=== PATIENT | male | born 1960 | race Caucasian/White ===

== ENCOUNTER 2017-02-01 23:58 | Inpatient (IN) | payer OTHER ==
[~2017-02-01] VITALS: Ht 165.1 cm; Wt 93.3 kg
[~2017-02-01 23:58] MED LIST: AMLO-511 PO; ASPI81TA2 PO; CLOP75 PO; LISI-662 PO; METO50TA9 PO; SIMV-260 PO
[2017-02-02 00:35] LABS: BASOPHILS # (AUTO) 0.04 K/uL (0.00-0.20); BASOPHILS % (AUTO) 0.6 % (0.0-2.0); EOSINOPHILS # (AUTO) 0.11 K/uL (0.00-0.70); EOSINOPHILS % (AUTO) 1.76 % (1.0-6.0); HEMOGLOBIN 14.8 g/dL (13.5-17.5); LYMPHOCYTES # (AUTO) 1.2 K/uL (1.0-4.8); MEAN CORPUSCULAR HEMOGLOBIN 31.3 pg (26.0-34.0); MEAN CORPUSCULAR HGB CONC 32.9 G/dL (31.0-37.0); MEAN CORPUSCULAR VOLUME 95 fL (80-100); MONOCYTES # (AUTO) 0.5 K/uL (0.1-1.0); MONOCYTES % (AUTO) 7.3 % (2.0-9.0); NEUTROPHILS # (AUTO) 4.6 K/uL (1.8-7.7); NEUTROPHILS % (AUTO) 71.3 % (40.0-70.0); PLATELET COUNT (AUTO) 194 K/uL (150-450); RED BLOOD CELL COUNT(AUTO) 4.74 MIL/uL (4.50-5.90); RED CELL DISTRIBUTION WIDTH 13.3 % (11.5-14.5); WHITE BLOOD COUNT (AUTO) 6.4 K/uL (4.5-11.0)
[2017-02-02 00:46] LABS: ANION GAP 9 mmol/L (8-16); CALCIUM, TOTAL 8.4 mg/dL (8.8-10.5); CARBON DIOXIDE 27 mmol/L (22-29); CHLORIDE 106 mmol/L (98-107); CREATININE 1.06 mg/dL (0.60-1.30); GLOMERULAR FILTR. RATE CALC > 60 mL/min (>60); POTASSIUM 3.3 mmol/L (3.5-5.1); SODIUM SERUM 142 mmol/L (136-145); UREA NITROGEN, BLOOD 12 mg/dL (7-18)
[2017-02-02 00:52] LABS: ALANINE AMINOTRANSFERASE 25 U/L (12-78); ALBUMIN 3.4 g/dL (3.4-5.0); ASPARTATE AMINOTRANSFERASE 14 U/L (15-37); BILIRUBIN,TOTAL 0.2 mg/dL (0.1-1.0); TOTAL PROTEIN, SERUM 7.1 g/dL (6.4-8.2)
[2017-02-02] MEDS ORDERED: NITROGLYCERIN 2% (1 GM=INCH) PACKET TP ONE (01:15)
[2017-02-02] MEDS ORDERED: MORPHINE SULFATE 4 MG/ML SYRINGE IVP ONE (01:15)
[2017-02-02] MEDS ORDERED: ASPIRIN 81 MG CHEWABLE TABLET PO ONE (01:15)
[2017-02-02] MEDS ORDERED: POTASSIUM CHLORIDE 20 MEQ ER TABLET PO ONE (01:30)
[2017-02-02] MEDS ORDERED: ACETAMINOPHEN 325 MG TABLET PO PRN ×2 (02:15→16:45)
[2017-02-02] MEDS ORDERED: 0.9% SODIUM CHLORIDE 10 ML SYRINGE IVP PRN (02:15)
[2017-02-02] MEDS ORDERED: ONDANSETRON HCL 4 MG/2 ML VIAL IVP PRN ×2 (02:15→16:45)
[2017-02-02 03:30] VITALS: BP 129/75
[2017-02-02 07:30] VITALS: BP 123/80
[2017-02-02 09:52] LABS: ALANINE AMINOTRANSFERASE 22 U/L (12-78); ANION GAP 9 mmol/L (8-16); ASPARTATE AMINOTRANSFERASE 13 U/L (15-37); BILIRUBIN,TOTAL 0.2 mg/dL (0.1-1.0); CALCIUM, TOTAL 8.2 mg/dL (8.8-10.5); CARBON DIOXIDE 26 mmol/L (22-29); CHLORIDE 107 mmol/L (98-107); CREATININE 1.08 mg/dL (0.60-1.30); GLOMERULAR FILTR. RATE CALC > 60 mL/min (>60); SODIUM SERUM 142 mmol/L (136-145); TOTAL PROTEIN, SERUM 6.3 g/dL (6.4-8.2); UREA NITROGEN, BLOOD 13 mg/dL (7-18)
[2017-02-02 11:34] VITALS: BP 125/85
[2017-02-02 16:02] VITALS: BP 125/75
[2017-02-02] MEDS ORDERED: ASPIRIN 81 MG CHEWABLE TABLET PO SCH (16:45)
[2017-02-02] MEDS: METOPROLOL SUCCINATE 50 MG ER TABLET PO SCH (16:45)
[2017-02-02] MEDS ORDERED: HYDROCODONE/ACETAMINOPHEN 5-325 MG TABLET PO PRN (16:45)
[2017-02-02] MEDS ORDERED: IPRATROPIUM BROMIDE 0.5 MG/2.5 ML NEB SOLUTION NEB PRN (16:45)
[2017-02-02] MEDS ORDERED: MAGNESIUM HYDROXIDE SUSPENSION 30 ML UDCUP PO PRN (16:45)
[2017-02-02] MEDS ORDERED: ZOLPIDEM TARTRATE 10 MG TABLET PO PRN (16:45)
[2017-02-02] MEDS: NITROGLYCERIN 2% (1 GM=INCH) PACKET TP SCH (17:28)
[2017-02-02] MEDS: LISINOPRIL 20 MG TABLET PO SCH (17:28)
[2017-02-02] MEDS: CLOPIDOGREL BISULFATE 75 MG TABLET PO SCH (17:28)
[2017-02-02] MEDS: AmLODIPine BESYLATE 5 MG TABLET PO SCH (17:28)
[2017-02-02] MEDS: MORPHINE SULFATE 2 MG/ML SYRINGE IVP PRN (19:46)
[2017-02-02] MEDS: SIMVASTATIN 20 MG TABLET PO SCH (19:46)
[2017-02-02] MEDS: DOCUSATE SODIUM 100 MG CAPSULE PO SCH (19:46)
[2017-02-02 19:47] VITALS: BP 137/74
[2017-02-03] VITALS (14 sets, daily range): BP systolic 114–150; BP diastolic 48–86
[2017-02-03] MEDS: NITROGLYCERIN 2% (1 GM=INCH) PACKET TP SCH ×4 (00:22→18:55)
[2017-02-03] MEDS ORDERED: PNEUMOCOCCAL VACCINE POLYVALENT 0.5 ML VIAL [PPSV23] IM ONE (00:30)
[2017-02-03] MEDS ORDERED: -PHARMACY VACCINE NOTE- MISC ONE ×4 (00:30→00:45)
[2017-02-03 07:00] LABS: HEMOGLOBIN A1C 5.7 % (4.5-6.2)
[2017-02-03 07:26] LABS: CHOL/HDL RATIO 6.3 (4.2-7.3)
[2017-02-03] MEDS: CLOPIDOGREL BISULFATE 75 MG TABLET PO SCH (09:00)
[2017-02-03] MEDS: LISINOPRIL 20 MG TABLET PO SCH (09:00)
[2017-02-03] MEDS: AmLODIPine BESYLATE 5 MG TABLET PO SCH (09:00)
[2017-02-03] MEDS: PANTOPRAZOLE SODIUM 40 MG/VIAL IVP SCH (09:00)
[2017-02-03] MEDS: METOPROLOL SUCCINATE 50 MG ER TABLET PO SCH (09:00)
[2017-02-03] MEDS: ASPIRIN 81 MG CHEWABLE TABLET PO SCH (09:00)
[2017-02-03] MEDS: DOCUSATE SODIUM 100 MG CAPSULE PO SCH ×2 (09:00→20:22)
[2017-02-03] MEDS ORDERED: NITROGLYCERIN 50 MG/D5% WATER 0 ML ONE (14:11)
[2017-02-03] MEDS ORDERED: MIDAZOLAM HCL 2 MG/2 ML VIAL ONE (14:11)
[2017-02-03] MEDS ORDERED: FentaNYL CITRATE-PF 100 MCG/2 ML VIAL ONE (14:11)
[2017-02-03] MEDS ORDERED: VERAPAMIL HCL 2.5 MG/ML 2 ML VIAL ONE (14:11)
[2017-02-03] MEDS ORDERED: LIDOCAINE HCL/PF 1% 30 ML VIAL ONE (14:12)
[2017-02-03] MEDS ORDERED: SODIUM BICARBONATE 50 MEQ/50 ML VIAL ONE (14:12)
[2017-02-03] MEDS ORDERED: IOHEXOL 300 MG/ML 150 ML VIAL ONE (14:12)
[2017-02-03] MEDS ORDERED: HEPARIN SODIUM 1000 UNITS/NS 1,000 ML ONE (14:13)
[2017-02-03] MEDS ORDERED: HEPARIN SODIUM,PORCINE 1,000 UNITS/ML 10 ML VIAL ONE (14:13)
[2017-02-03] MEDS ORDERED: SODIUM CHLORIDE 0.9% 500 ML IV ONE (14:20)
[2017-02-03] MEDS ORDERED: MIDAZOLAM HCL 2 MG/2 ML VIAL IVP ONE (14:24)
[2017-02-03] MEDS ORDERED: FentaNYL CITRATE-PF 100 MCG/2 ML VIAL IVP ONE (14:24)
[2017-02-03] MEDS ORDERED: LIDOCAINE 1% 30 ML/SOD BICARB 8.4% 4 ML SQ ONE (14:24)
[2017-02-03] MEDS ORDERED: HEPARIN SODIUM 2,000 UNITS in HEPARIN SODIUM 1000 UNITS/NS 1,000 ML IARTER ONE (14:26)
[2017-02-03] MEDS ORDERED: IOHEXOL 300 MG/ML 150 ML VIAL IARTER ONE (14:28)
[2017-02-03] MEDS: SIMVASTATIN 20 MG TABLET PO SCH (20:22)
[2017-02-03] MEDS: MORPHINE SULFATE 2 MG/ML SYRINGE IVP PRN (20:22)
[2017-02-04] MEDS: NITROGLYCERIN 2% (1 GM=INCH) PACKET TP SCH ×3 (06:00→12:00)
[2017-02-04 06:10] VITALS: BP 134/78
[2017-02-04 07:33] VITALS: BP 128/80
[2017-02-04] MEDS: METOPROLOL SUCCINATE 50 MG ER TABLET PO SCH (09:55)
[2017-02-04] MEDS: LISINOPRIL 20 MG TABLET PO SCH (09:57)
[2017-02-04] MEDS: AmLODIPine BESYLATE 5 MG TABLET PO SCH (09:58)
[2017-02-04] MEDS: CLOPIDOGREL BISULFATE 75 MG TABLET PO SCH (09:58)
[2017-02-04] MEDS: ASPIRIN 81 MG CHEWABLE TABLET PO SCH (09:58)
[2017-02-04] MEDS: DOCUSATE SODIUM 100 MG CAPSULE PO SCH (09:58)
[2017-02-04] MEDS: PANTOPRAZOLE SODIUM 40 MG/VIAL IVP SCH (09:59)
[2017-02-04 11:25] VITALS: BP 135/74
[2017-02-04] MEDS: MORPHINE SULFATE 2 MG/ML SYRINGE IVP PRN (12:15)
[2017-02-04 15:07] VITALS: BP 139/80
== END 2017-02-04 16:17 | disposition home or self-care (01) | DRG 191 ==
LOC: EMS 02-02 → 5S 02-02 02:25
PROVIDERS: ADMIT Hospitalist; ATTEND Hospitalist
PROC: 4A023N7 Measurement of Cardiac Sampling and Pressure, Left Heart, Percutaneous Approach (ICD-10-PCS; principal; 2017-02-03)
PROC: B2151ZZ Fluoroscopy of Left Heart using Low Osmolar Contrast (ICD-10-PCS; 2017-02-03)
PROC: B2111ZZ Fluoroscopy of Multiple Coronary Arteries using Low Osmolar Contrast (ICD-10-PCS; 2017-02-03)
PROC: B41F1ZZ Fluoroscopy of Right Lower Extremity Arteries using Low Osmolar Contrast (ICD-10-PCS; 2017-02-03)
DX: T82.855A Stenosis of coronary artery stent, initial encounter (principal); I10 Essential (primary) hypertension; I25.10 Atherosclerotic heart disease of native coronary artery without angina pectoris; K21.9 Gastro-esophageal reflux disease without esophagitis; Z53.29 Procedure and treatment not carried out because of patient's decision for other reasons; F17.210 Nicotine dependence, cigarettes, uncomplicated; R07.89 Other chest pain; E78.5 Hyperlipidemia, unspecified; I25.2 Old myocardial infarction; Z79.82 Long term (current) use of aspirin; Z71.6 Tobacco abuse counseling; E78.00 Pure hypercholesterolemia, unspecified; Z79.02 Long term (current) use of antithrombotics/antiplatelets; Z79.899 Other long term (current) drug therapy; Y83.8 Other surgical procedures as the cause of abnormal reaction of the patient, or of later complication, without mention of misadventure at the time of the procedure; Y92.89 Other specified places as the place of occurrence of the external cause; Y93.89 Activity, other specified; Y99.8 Other external cause status
CPT/HCPCS: 83036; 93005; 93306; 96374; 99285; C9113; J1644; J2250; J2270; J3010; J3490; Q9967

== ENCOUNTER 2017-12-21 16:41 | Inpatient (IN) | payer OTHER ==
[~2017-12-21] VITALS: Ht 165.1 cm; Wt 89.0 kg
[~2017-12-21 16:41] MED LIST changes: -ASPI81TA2 PO; +ASPI81TA39 PO
[2017-12-21 17:07] LABS: EOSINOPHILS % (AUTO) 3.5 % (1.0-6.0); HEMATOCRIT 43.6 % (41-53); HEMOGLOBIN 15.4 g/dL (13.5-17.5); LYMPHOCYTES % (AUTO) 33.6 % (22.0-44.0); MEAN CORPUSCULAR HEMOGLOBIN 32.2 pg (26.0-34.0); MEAN CORPUSCULAR HGB CONC 35.4 G/dL (31.0-37.0); MEAN CORPUSCULAR VOLUME 91 fL (80-100); MONOCYTES # (AUTO) 0.4 K/uL (0.1-1.0); MONOCYTES % (AUTO) 6.8 % (2.0-9.0); NEUTROPHILS # (AUTO) 3.3 K/uL (1.8-7.7); NEUTROPHILS % (AUTO) 55.1 % (40.0-70.0); PLATELET COUNT (AUTO) 202 K/uL (150-450); RED BLOOD CELL COUNT(AUTO) 4.79 MIL/uL (4.50-5.90); RED CELL DISTRIBUTION WIDTH 13.2 % (11.5-14.5)
[2017-12-21 17:16] LABS: ANION GAP 8 mmol/L (8-16); CARBON DIOXIDE 29 mmol/L (22-29); CHLORIDE 103 mmol/L (98-107); CREATININE 1.06 mg/dL (0.60-1.30); GLOMERULAR FILTR. RATE CALC > 60 mL/min (>60); GLUCOSE,RANDOM 108 mg/dL (70-110); POTASSIUM 3.8 mmol/L (3.5-5.1); SODIUM SERUM 140 mmol/L (136-145); UREA NITROGEN, BLOOD 12 mg/dL (7-18)
[2017-12-21 17:22] LABS: ALANINE AMINOTRANSFERASE 23 U/L (12-78); ALBUMIN 3.6 g/dL (3.4-5.0); ALKALINE PHOSPHATASE 70 U/L (46-116); ASPARTATE AMINOTRANSFERASE 14 U/L (15-37); BILIRUBIN,TOTAL 0.3 mg/dL (0.1-1.0); TOTAL PROTEIN, SERUM 7.2 g/dL (6.4-8.2)
[2017-12-21] MEDS ORDERED: ASPIRIN 81 MG CHEWABLE TABLET PO ONE (20:00)
[2017-12-21] MEDS ORDERED: NITROGLYCERIN 2% (1 GM=INCH) PACKET TP ONE (20:00)
[2017-12-21] MEDS ORDERED: ONDANSETRON HCL 4 MG/2 ML VIAL IVP PRN (21:00)
[2017-12-21] MEDS ORDERED: 0.9% SODIUM CHLORIDE 10 ML SYRINGE IVP PRN (21:00)
[2017-12-21] MEDS ORDERED: ACETAMINOPHEN 325 MG TABLET PO PRN ×2 (21:00→23:30)
[2017-12-21 21:36] VITALS: BP 130/88
[2017-12-21] MEDS ORDERED: NITROGLYCERIN 0.4 MG SUBLINGUAL TABLET #25 SL PRN (23:30)
[2017-12-21] MEDS ORDERED: METOPROLOL TARTRATE 25 MG TABLET PO SCH (23:30)
[2017-12-22] VITALS (7 sets, daily range): BP systolic 109–145; BP diastolic 22–84
[2017-12-22] MEDS ORDERED: ZOLPIDEM TARTRATE 5 MG TABLET PO PRN
[2017-12-22] MEDS ORDERED: 0.9% SODIUM CHLORIDE 10 ML SYRINGE IVP PRN
[2017-12-22] MEDS ORDERED: ONDANSETRON HCL 4 MG/2 ML VIAL IVP PRN
[2017-12-22] MEDS: HEPARIN SODIUM,PORCINE 5,000 UNITS/ML VIAL SQ SCH ×4 (00:46→23:57)
[2017-12-22 06:49] LABS: BASOPHILS % (AUTO) 0.5 % (0.0-2.0); HEMATOCRIT 40.5 % (41-53); HEMOGLOBIN 14.2 g/dL (13.5-17.5); LYMPHOCYTES # (AUTO) 1.7 K/uL (1.0-4.8); LYMPHOCYTES % (AUTO) 23.8 % (22.0-44.0); MEAN CORPUSCULAR VOLUME 91 fL (80-100); MONOCYTES # (AUTO) 0.5 K/uL (0.1-1.0); MONOCYTES % (AUTO) 6.7 % (2.0-9.0); NEUTROPHILS # (AUTO) 4.7 K/uL (1.8-7.7); PLATELET COUNT (AUTO) 188 K/uL (150-450); RED BLOOD CELL COUNT(AUTO) 4.44 MIL/uL (4.50-5.90); RED CELL DISTRIBUTION WIDTH 13.5 % (11.5-14.5)
[2017-12-22 07:12] LABS: ANION GAP 7 mmol/L (8-16); CARBON DIOXIDE 27 mmol/L (22-29); CHLORIDE 102 mmol/L (98-107); GLUCOSE,RANDOM 91 mg/dL (70-110); POTASSIUM 3.3 mmol/L (3.5-5.1); SODIUM SERUM 136 mmol/L (136-145); UREA NITROGEN, BLOOD 17 mg/dL (7-18)
[2017-12-22 07:13] LABS: C-REACTIVE PROTEIN QUANT 0.32 mg/dL (0.00-0.30); CALCIUM, TOTAL 8.6 mg/dL (8.8-10.5); GLOMERULAR FILTR. RATE CALC > 60 mL/min (>60)
[2017-12-22] MEDS: METOPROLOL SUCCINATE 50 MG ER TABLET PO SCH (08:09)
[2017-12-22] MEDS: PANTOPRAZOLE SODIUM 40 MG/VIAL IVP SCH (08:10)
[2017-12-22] MEDS: CLOPIDOGREL BISULFATE 75 MG TABLET PO SCH (08:10)
[2017-12-22] MEDS: ASPIRIN 81 MG CHEWABLE TABLET PO SCH (08:10)
[2017-12-22] MEDS: NITROGLYCERIN 2% (1 GM=INCH) PACKET TP SCH ×2 (08:11→20:21)
[2017-12-22] MEDS ORDERED: ASPIRIN 81 MG CHEWABLE TABLET PO SCH (09:00)
[2017-12-22] MEDS: LISINOPRIL 20 MG TABLET PO SCH (11:30)
[2017-12-22] MEDS: AmLODIPine BESYLATE 5 MG TABLET PO SCH (11:30)
[2017-12-22] MEDS ORDERED: POTASSIUM CHL 10 MEQ/WATER 50 ML IV PRN (12:00)
[2017-12-22] MEDS ORDERED: POTASSIUM CHLORIDE 20 MEQ ER TABLET PO PRN (12:00)
[2017-12-22] MEDS ORDERED: SIMVASTATIN 20 MG TABLET PO SCH (21:00)
[2017-12-23] VITALS (14 sets, daily range): BP systolic 126–159; BP diastolic 66–94
[2017-12-23] MEDS: AmLODIPine BESYLATE 5 MG TABLET PO SCH (08:02)
[2017-12-23] MEDS: METOPROLOL SUCCINATE 50 MG ER TABLET PO SCH (08:02)
[2017-12-23] MEDS: CLOPIDOGREL BISULFATE 75 MG TABLET PO SCH (08:02)
[2017-12-23] MEDS: ASPIRIN 81 MG CHEWABLE TABLET PO SCH (08:02)
[2017-12-23] MEDS: LISINOPRIL 20 MG TABLET PO SCH (08:02)
[2017-12-23] MEDS: HEPARIN SODIUM,PORCINE 5,000 UNITS/ML VIAL SQ SCH ×2 (08:03→15:17)
[2017-12-23] MEDS: PANTOPRAZOLE SODIUM 40 MG/VIAL IVP SCH (08:03)
[2017-12-23] MEDS: NITROGLYCERIN 2% (1 GM=INCH) PACKET TP SCH ×3 (08:05→20:53)
[2017-12-23] MEDS ORDERED: SODIUM BICARBONATE 50 MEQ/50 ML VIAL ONE (08:35)
[2017-12-23] MEDS ORDERED: HEPARIN SODIUM 1000 UNITS/NS 1,000 ML ONE (08:35)
[2017-12-23] MEDS ORDERED: LIDOCAINE HCL/PF 1% 30 ML VIAL ONE (08:35)
[2017-12-23] MEDS ORDERED: IOHEXOL 300 MG/ML 150 ML VIAL ONE (08:35)
[2017-12-23 08:53] LABS: PROTHROMBIN TIME 10.1 SEC (9.4-11.6)
[2017-12-23] MEDS ORDERED: FentaNYL CITRATE-PF 100 MCG/2 ML VIAL ONE (08:56)
[2017-12-23] MEDS ORDERED: VERAPAMIL HCL 2.5 MG/ML 2 ML VIAL ONE (08:56)
[2017-12-23] MEDS ORDERED: MIDAZOLAM HCL 2 MG/2 ML VIAL ONE (08:56)
[2017-12-23] MEDS ORDERED: NITROGLYCERIN 50 MG/D5% WATER 250 ML ONE (08:57)
[2017-12-23] MEDS ORDERED: HEPARIN SODIUM,PORCINE 1,000 UNITS/ML 10 ML VIAL ONE (08:57)
[2017-12-23] MEDS ORDERED: SODIUM CHLORIDE 0.9% 500 ML IV ONE (09:36)
[2017-12-23] MEDS ORDERED: LIDOCAINE 1% 30 ML/SOD BICARB 8.4% 4 ML SQ ONE (09:37)
[2017-12-23] MEDS ORDERED: FentaNYL CITRATE-PF 100 MCG/2 ML VIAL IVP ONE (09:39)
[2017-12-23] MEDS ORDERED: MIDAZOLAM HCL 2 MG/2 ML VIAL IVP ONE (09:39)
[2017-12-23] MEDS ORDERED: HEPARIN SODIUM 2,000 UNITS in HEPARIN SODIUM 1000 UNITS/NS 1,000 ML IARTER ONE (09:40)
[2017-12-23] MEDS ORDERED: IOHEXOL 300 MG/ML 150 ML VIAL IARTER ONE (09:41)
[2017-12-23] MEDS ORDERED: HEPARIN SODIUM,PORCINE 5,000 UNITS/ML VIAL IVP ONE (09:52)
[2017-12-23] MEDS ORDERED: CLOPIDOGREL BISULFATE 300 MG TABLET ONE (09:58)
[2017-12-23] MEDS ORDERED: IOHEXOL 300 MG/ML 50 ML VIAL ONE (09:58)
[2017-12-23] MEDS ORDERED: IOHEXOL 300 MG/ML 100 ML VIAL ONE (09:58)
[2017-12-23] MEDS ORDERED: CLOPIDOGREL BISULFATE 300 MG TABLET PO ONE (10:00)
[2017-12-23] MEDS ORDERED: VERAPAMIL HCL 2.5 MG/ML 2 ML VIAL ICOR ONE ×2 (10:13)
[2017-12-23] MEDS ORDERED: NITROGLYCERIN/D5W 50 MG/250 ML IV BOTTLE ICOR ONE ×2 (10:13)
[2017-12-23] MEDS ORDERED: TraMADol HCL 50 MG TABLET PO PRN (14:45)
[2017-12-23] MEDS ORDERED: ATORVASTATIN CALCIUM 40 MG TABLET PO SCH (21:00)
[2017-12-24] VITALS: BP 135/65
[2017-12-24 04:00] VITALS: BP 137/41
[2017-12-24 08:00] VITALS: BP 132/85
[2017-12-24] MEDS: HEPARIN SODIUM,PORCINE 5,000 UNITS/ML VIAL SQ SCH ×2 (08:00)
[2017-12-24] MEDS: AmLODIPine BESYLATE 5 MG TABLET PO SCH (08:02)
[2017-12-24] MEDS: LISINOPRIL 20 MG TABLET PO SCH (08:02)
[2017-12-24] MEDS: CLOPIDOGREL BISULFATE 75 MG TABLET PO SCH (08:02)
[2017-12-24] MEDS: METOPROLOL SUCCINATE 50 MG ER TABLET PO SCH (08:02)
[2017-12-24] MEDS: ASPIRIN 81 MG CHEWABLE TABLET PO SCH (08:02)
[2017-12-24] MEDS: NITROGLYCERIN 2% (1 GM=INCH) PACKET TP SCH (08:03)
[2017-12-24] MEDS: PANTOPRAZOLE SODIUM 40 MG/VIAL IVP SCH (08:03)
[2017-12-24] MEDS ORDERED: ATOR80TA PO (11:42)
== END 2017-12-24 12:15 | disposition home or self-care (01) | DRG 175 ==
LOC: EMS 16:41 → 5S 20:27 → EMS 21:05 → ICU 12-23 11:30
PROVIDERS: ADMIT Internal Medicine; ATTEND Internal Medicine
PROC: 027035Z Dilation of Coronary Artery, One Artery with Two Drug-eluting Intraluminal Devices, Percutaneous Approach (ICD-10-PCS; principal; 2017-12-23)
PROC: 4A023N7 Measurement of Cardiac Sampling and Pressure, Left Heart, Percutaneous Approach (ICD-10-PCS; 2017-12-23)
PROC: B2111ZZ Fluoroscopy of Multiple Coronary Arteries using Low Osmolar Contrast (ICD-10-PCS; 2017-12-23)
PROC: B2151ZZ Fluoroscopy of Left Heart using Low Osmolar Contrast (ICD-10-PCS; 2017-12-23)
DX: T82.855A Stenosis of coronary artery stent, initial encounter (principal); I10 Essential (primary) hypertension; I25.10 Atherosclerotic heart disease of native coronary artery without angina pectoris; E78.5 Hyperlipidemia, unspecified; E78.00 Pure hypercholesterolemia, unspecified; K21.9 Gastro-esophageal reflux disease without esophagitis; F17.210 Nicotine dependence, cigarettes, uncomplicated; I25.2 Old myocardial infarction; Z95.5 Presence of coronary angioplasty implant and graft; Z79.899 Other long term (current) drug therapy; Z79.82 Long term (current) use of aspirin; Z82.49 Family history of ischemic heart disease and other diseases of the circulatory system; Z71.6 Tobacco abuse counseling
CPT/HCPCS: 83735; 84132; 86140; 87081; 92920; 92928; 93005; 93306; 99285; C9113; J1644; J2250; J3010; J3490; Q9967

== ENCOUNTER 2019-02-21 21:06 | Inpatient (IN) | payer OTHER ==
[~2019-02-21] VITALS: Ht 165.1 cm; Wt 88.8 kg
[~2019-02-21 21:06] MED LIST changes: +ATOR80TA PO; -CLOP75 PO; +CLOP75TA3 PO; -SIMV-260 PO
[2019-02-21 21:38] LABS: BASOPHILS % (AUTO) 0.7 % (0.0-2.0); EOSINOPHILS % (AUTO) 4.4 % (1.0-6.0); HEMATOCRIT 40.2 % (41-53); HEMOGLOBIN 13.9 g/dL (13.5-17.5); LYMPHOCYTES # (AUTO) 2.1 K/uL (1.0-4.8); LYMPHOCYTES % (AUTO) 31.8 % (22.0-44.0); MEAN CORPUSCULAR HEMOGLOBIN 31.7 pg (26.0-34.0); MEAN CORPUSCULAR HGB CONC 34.6 G/dL (31.0-37.0); MEAN CORPUSCULAR VOLUME 92 fL (80-100); MONOCYTES # (AUTO) 0.5 K/uL (0.1-1.0); MONOCYTES % (AUTO) 7.3 % (2.0-9.0); NEUTROPHILS # (AUTO) 3.7 K/uL (1.8-7.7); NEUTROPHILS % (AUTO) 55.8 % (40.0-70.0); PLATELET COUNT (AUTO) 198 K/uL (150-450); RED BLOOD CELL COUNT(AUTO) 4.38 MIL/uL (4.50-5.90); RED CELL DISTRIBUTION WIDTH 13.2 % (11.5-14.5)
[2019-02-21 21:44] LABS: GLUCOSE,POINT OF CARE 95 MG/DL (70-110)
[2019-02-21 21:53] LABS: ANION GAP 8 mmol/L (8-16); CALCIUM, TOTAL 8.4 mg/dL (8.8-10.5); CARBON DIOXIDE 26 mmol/L (22-29); CHLORIDE 109 mmol/L (98-107); CREATININE 1.12 mg/dL (0.60-1.30); GLOMERULAR FILTR. RATE CALC > 60 mL/min (>60); GLUCOSE,RANDOM 104 mg/dL (70-110); POTASSIUM 3.8 mmol/L (3.5-5.1); SODIUM SERUM 143 mmol/L (136-145); UREA NITROGEN, BLOOD 15 mg/dL (7-18)
[2019-02-21 21:58] LABS: AMMONIA 24 umol/L (11-32)
[2019-02-21 21:59] LABS: ALANINE AMINOTRANSFERASE 16 U/L (12-78); ALBUMIN 3.2 g/dL (3.4-5.0); ALKALINE PHOSPHATASE 69 U/L (46-116); ASPARTATE AMINOTRANSFERASE 12 U/L (15-37); BILIRUBIN,TOTAL 0.2 mg/dL (0.1-1.0); LIPASE 136 U/L (73-393); TOTAL PROTEIN, SERUM 6.7 g/dL (6.4-8.2)
[2019-02-21 22:01] LABS: TROPONIN I < 0.02 ng/mL (0.00-0.05)
[2019-02-21 22:02] LABS: B-TYPE NATRIURETIC PEPTIDE 39 pg/mL (0-100)
[2019-02-21] MEDS ORDERED: ASPIRIN 325 MG TABLET PO ONE (22:45)
[2019-02-21] MEDS ORDERED: NITROGLYCERIN 2% (1 GM=INCH) PACKET TP ONE (22:45)
[2019-02-21] MEDS ORDERED: CLOPIDOGREL BISULFATE 75 MG TABLET PO ONE (23:00)
[2019-02-21] MEDS ORDERED: 0.9% SODIUM CHLORIDE 10 ML SYRINGE IVP PRN (23:00)
[2019-02-21] MEDS ORDERED: ACETAMINOPHEN 325 MG TABLET PO PRN (23:00)
[2019-02-21] MEDS ORDERED: ONDANSETRON HCL 4 MG/2 ML VIAL IVP PRN (23:00)
[2019-02-21 23:45] VITALS: BP 129/62
[2019-02-21 23:59] LABS: APPEARANCE,URINE CLEAR (CLEAR); BILIRUBIN,URINE NEGATIVE (NEGATIVE); GLUCOSE, URINE (UA) NEGATIVE (NEGATIVE); KETONES,URINE NEGATIVE (NEGATIVE); LEUKOCYTE ESTERASE ,URINE NEGATIVE (NEGATIVE); NITRATE,URINE NEGATIVE (NEGATIVE); OCCULT BLOOD,URINE NEGATIVE (NEGATIVE); PROTEIN,URINE NEGATIVE (NEGATIVE); UROBILINOGEN,URINE 0.2 mg/dL (<=1.0)
[2019-02-22 00:04] LABS: AMPHET/METH SCREEN,URINE NEGATIVE (NEGATIVE); BARBITURATE SCREEN, URINE NEGATIVE (NEGATIVE); BENZODIAZEPINES SCREEN,URINE NEGATIVE (NEGATIVE); CANNABINOID SCREEN,URINE NEGATIVE (NEGATIVE); COCAINE SCREEN,URINE NEGATIVE (NEGATIVE); METHADONE SCREEN, URINE NEGATIVE (NEGATIVE); OPIATE SCREEN,URINE NEGATIVE (NEGATIVE); PHENCYCLIDINE SCREEN,URINE NEGATIVE (NEGATIVE)
[2019-02-22 00:16] LABS: BACTERIA,URINE None Seen /HPF (None Seen); RBC,URINE 0-2 /HPF (0-2); SQUAMOUS EPITHELIAL CELL,UR Rare /LPF (None Seen); WBC,URINE 0-2 /HPF (0-5)
[2019-02-22] MEDS ORDERED: PNEUMOCOCCAL VACCINE POLYVALENT 0.5 ML VIAL [PPSV23] IM ONE (01:15)
[2019-02-22] MEDS ORDERED: -PHARMACY VACCINE NOTE- MISC ONE (01:15)
[2019-02-22] MEDS ORDERED: NITROGLYCERIN 2% (1 GM=INCH) PACKET TP PRN (02:15)
[2019-02-22] MEDS ORDERED: ACETAMINOPHEN 325 MG TABLET PO PRN (02:15)
[2019-02-22] MEDS ORDERED: NITROGLYCERIN 0.4 MG SUBLINGUAL TABLET #25 SL PRN (02:15)
[2019-02-22] MEDS ORDERED: ZOLPIDEM TARTRATE 5 MG TABLET PO PRN (02:15)
[2019-02-22 04:34] VITALS: BP 120/76
[2019-02-22] MEDS ORDERED: GADOBUTROL 1 MMOL/ML 10 ML VIAL IVP ONE (08:14)
[2019-02-22 08:35] VITALS: BP 112/77
[2019-02-22] MEDS ORDERED: ASPIRIN 81 MG CHEWABLE TABLET PO SCH (09:00)
[2019-02-22] MEDS: LISINOPRIL 20 MG TABLET PO SCH (10:37)
[2019-02-22] MEDS: AmLODIPine BESYLATE 5 MG TABLET PO SCH (10:37)
[2019-02-22] MEDS: CLOPIDOGREL BISULFATE 75 MG TABLET PO SCH (10:37)
[2019-02-22] MEDS: METOPROLOL SUCCINATE 50 MG ER TABLET PO SCH (10:37)
[2019-02-22 11:46] VITALS: BP 120/70
[2019-02-22] MEDS ORDERED: TraMADol HCL 50 MG TABLET PO PRN (12:00)
[2019-02-22] MEDS: MORPHINE SULFATE 2 MG/ML SYRINGE IVP PRN (15:41)
[2019-02-22 18:41] LABS: HEMOGLOBIN A1C 5.8 % (4.5-6.2)
[2019-02-22 18:50] LABS: CHOL/HDL RATIO 8.2 (4.2-7.3); THYROID STIMULATING HORMONE 2.01 uIU/mL (0.36-3.74)
[2019-02-22] MEDS: RANOLAZINE 500 MG ER TABLET PO SCH (19:39)
[2019-02-22] MEDS: ATORVASTATIN CALCIUM 40 MG TABLET PO SCH (19:39)
[2019-02-22 20:37] VITALS: BP 127/83
[2019-02-23 05:07] VITALS: BP 139/78
[2019-02-23 06:43] LABS: BASOPHILS % (AUTO) 0.7 % (0.0-2.0); EOSINOPHILS % (AUTO) 4.1 % (1.0-6.0); HEMOGLOBIN 13.4 g/dL (13.5-17.5); LYMPHOCYTES # (AUTO) 1.8 K/uL (1.0-4.8); LYMPHOCYTES % (AUTO) 27.6 % (22.0-44.0); MEAN CORPUSCULAR HEMOGLOBIN 31.9 pg (26.0-34.0); MEAN CORPUSCULAR HGB CONC 34.3 G/dL (31.0-37.0); MEAN CORPUSCULAR VOLUME 93 fL (80-100); MONOCYTES # (AUTO) 0.5 K/uL (0.1-1.0); MONOCYTES % (AUTO) 7.6 % (2.0-9.0); NEUTROPHILS # (AUTO) 3.9 K/uL (1.8-7.7); PLATELET COUNT (AUTO) 181 K/uL (150-450); RED CELL DISTRIBUTION WIDTH 13.3 % (11.5-14.5)
[2019-02-23 06:56] LABS: ALANINE AMINOTRANSFERASE 12 U/L (12-78); ALBUMIN 2.9 g/dL (3.4-5.0); ALKALINE PHOSPHATASE 60 U/L (46-116); ANION GAP 7 mmol/L (8-16); ASPARTATE AMINOTRANSFERASE 6 U/L (15-37); BILIRUBIN,TOTAL 0.2 mg/dL (0.1-1.0); CALCIUM, TOTAL 8.5 mg/dL (8.8-10.5); CARBON DIOXIDE 28 mmol/L (22-29); CHLORIDE 106 mmol/L (98-107); CREATININE 1.12 mg/dL (0.60-1.30); GLOMERULAR FILTR. RATE CALC > 60 mL/min (>60); GLUCOSE,RANDOM 99 mg/dL (70-110); POTASSIUM 3.8 mmol/L (3.5-5.1); SODIUM SERUM 141 mmol/L (136-145); TOTAL PROTEIN, SERUM 6.3 g/dL (6.4-8.2); UREA NITROGEN, BLOOD 19 mg/dL (7-18)
[2019-02-23 08:35] VITALS: BP_SYST 106; BP_SYST 152; BP_DIAS 55; BP_DIAS 81
[2019-02-23] MEDS: RANOLAZINE 500 MG ER TABLET PO SCH ×2 (09:09→20:29)
[2019-02-23] MEDS: LISINOPRIL 20 MG TABLET PO SCH (09:09)
[2019-02-23] MEDS: CLOPIDOGREL BISULFATE 75 MG TABLET PO SCH (09:10)
[2019-02-23] MEDS: ASPIRIN 325 MG TABLET PO SCH (09:10)
[2019-02-23] MEDS: AmLODIPine BESYLATE 5 MG TABLET PO SCH (09:10)
[2019-02-23] MEDS: METOPROLOL SUCCINATE 50 MG ER TABLET PO SCH (09:10)
[2019-02-23 11:58] VITALS: BP 138/88
[2019-02-23 16:48] VITALS: BP 139/77
[2019-02-23 20:11] VITALS: BP 148/81
[2019-02-23] MEDS: ATORVASTATIN CALCIUM 40 MG TABLET PO SCH (20:29)
[2019-02-23] MEDS: MORPHINE SULFATE 2 MG/ML SYRINGE IVP PRN (20:29)
[2019-02-24 00:46] VITALS: BP 152/80
[2019-02-24 05:18] VITALS: BP 119/75
[2019-02-24 07:46] VITALS: BP 153/90
[2019-02-24] MEDS: ASPIRIN 325 MG TABLET PO SCH (08:10)
[2019-02-24] MEDS: AmLODIPine BESYLATE 5 MG TABLET PO SCH (08:11)
[2019-02-24] MEDS: RANOLAZINE 500 MG ER TABLET PO SCH (08:11)
[2019-02-24] MEDS: LISINOPRIL 20 MG TABLET PO SCH (08:11)
[2019-02-24] MEDS: CLOPIDOGREL BISULFATE 75 MG TABLET PO SCH (08:11)
[2019-02-24] MEDS: METOPROLOL SUCCINATE 50 MG ER TABLET PO SCH (08:11)
[2019-02-24 11:13] VITALS: BP 113/59
[2019-02-24] MEDS ORDERED: AMLO-512 PO (11:36)
[2019-02-24] MEDS ORDERED: RANO500T3 PO (11:37)
[2019-02-24] MEDS ORDERED: MAG HYDROX/AL HYDROX/SIMETH 30 ML SUSP UDCUP PO ONE ×2 (15:45→16:00)
[2019-02-24 15:59] VITALS: BP 134/68
== END 2019-02-24 16:10 | disposition home or self-care (01) | DRG 45 ==
LOC: EMS 21:06 → 5S 22:50
PROVIDERS: ADMIT Internal Medicine; ATTEND Internal Medicine
DX: I63.81 Other cerebral infarction due to occlusion or stenosis of small artery (principal); I11.0 Hypertensive heart disease with heart failure; I50.32 Chronic diastolic (congestive) heart failure; I25.10 Atherosclerotic heart disease of native coronary artery without angina pectoris; E78.00 Pure hypercholesterolemia, unspecified; I25.2 Old myocardial infarction; E66.9 Obesity, unspecified; E78.5 Hyperlipidemia, unspecified; F17.210 Nicotine dependence, cigarettes, uncomplicated; I65.23 Occlusion and stenosis of bilateral carotid arteries; J44.9 Chronic obstructive pulmonary disease, unspecified; K21.9 Gastro-esophageal reflux disease without esophagitis; Z86.73 Personal history of transient ischemic attack (TIA), and cerebral infarction without residual deficits; Z91.19 Patient's noncompliance with other medical treatment and regimen; Z95.5 Presence of coronary angioplasty implant and graft; Z28.21 Immunization not carried out because of patient refusal
CPT/HCPCS: 70450; 70544; 70549; 70553; 83036; 83735; 84443; 92523; 93005; 93306; 93880; 97116; 97162; 97166; 97530; 97535; 99291; A9585; G0378; G0480; J2270

== ENCOUNTER 2019-08-29 15:15 | Emergency (ER) | payer OTHER ==
[~2019-08-29] VITALS: Ht 165.1 cm; Wt 88.6 kg
[~2019-08-29 15:15] MED LIST changes: -AMLO-511 PO; +AMLO10TA7 PO; +RANO500T3 PO
[2019-08-29 16:21] LABS: BASOPHILS % (AUTO) 0.8 % (0.0-2.0); EOSINOPHILS % (AUTO) 3.7 % (1.0-6.0); HEMATOCRIT 42.4 % (41-53); HEMOGLOBIN 14.8 g/dL (13.5-17.5); LYMPHOCYTES # (AUTO) 1.7 K/uL (1.0-4.8); LYMPHOCYTES % (AUTO) 29.3 % (22.0-44.0); MEAN CORPUSCULAR HEMOGLOBIN 32.6 pg (26.0-34.0); MEAN CORPUSCULAR HGB CONC 34.8 G/dL (31.0-37.0); MEAN CORPUSCULAR VOLUME 94 fL (80-100); MONOCYTES # (AUTO) 0.6 K/uL (0.1-1.0); MONOCYTES % (AUTO) 9.4 % (2.0-9.0); NEUTROPHILS # (AUTO) 3.4 K/uL (1.8-7.7); NEUTROPHILS % (AUTO) 56.8 % (40.0-70.0); PLATELET COUNT (AUTO) 229 K/uL (150-450); RED BLOOD CELL COUNT(AUTO) 4.53 MIL/uL (4.50-5.90); RED CELL DISTRIBUTION WIDTH 13.2 % (11.5-14.5)
[2019-08-29 16:40] LABS: ANION GAP 10 mmol/L (8-16); CALCIUM, TOTAL 8.4 mg/dL (8.8-10.5); CARBON DIOXIDE 26 mmol/L (22-29); CHLORIDE 106 mmol/L (98-107); CREATININE 1.04 mg/dL (0.60-1.30); GLOMERULAR FILTR. RATE CALC > 60 mL/min (>60); GLUCOSE,RANDOM 109 mg/dL (70-110); SODIUM SERUM 142 mmol/L (136-145); UREA NITROGEN, BLOOD 16 mg/dL (7-18)
[2019-08-29 16:46] LABS: ALANINE AMINOTRANSFERASE 28 U/L (12-78); ALBUMIN 3.3 g/dL (3.4-5.0); ALKALINE PHOSPHATASE 66 U/L (46-116); ASPARTATE AMINOTRANSFERASE 19 U/L (15-37); BILIRUBIN,TOTAL 0.3 mg/dL (0.1-1.0)
[2019-08-29 16:50] LABS: B-TYPE NATRIURETIC PEPTIDE 18 pg/mL (0-100)
[2019-08-29 17:31] VITALS: BP 124/67
[2019-08-29] MEDS ORDERED: ACETAMINOPHEN 325 MG TABLET PO PRN (18:00)
[2019-08-29] MEDS ORDERED: ONDANSETRON HCL 4 MG/2 ML VIAL IVP PRN (18:00)
[2019-08-29] MEDS ORDERED: 0.9% SODIUM CHLORIDE 10 ML SYRINGE IVP PRN (18:00)
== END 2019-08-29 18:27 | disposition left against medical advice (07) ==
LOC: EDUNIT# 15:15 → EMS 15:18
DX: I25.110 Atherosclerotic heart disease of native coronary artery with unstable angina pectoris (principal); R11.2 Nausea with vomiting, unspecified; I25.2 Old myocardial infarction; I10 Essential (primary) hypertension; E78.00 Pure hypercholesterolemia, unspecified; K21.9 Gastro-esophageal reflux disease without esophagitis; F17.210 Nicotine dependence, cigarettes, uncomplicated; Z79.899 Other long term (current) drug therapy; Z79.82 Long term (current) use of aspirin
CPT/HCPCS: 93005

== ENCOUNTER 2021-11-11 07:02 | Observation (INO) | payer OTHER ==
[~2021-11-11] VITALS: Ht 165.1 cm; Wt 91.5 kg
[~2021-11-11 07:02] MED LIST changes: +AMLO-258 PO; -AMLO10TA7 PO; -CLOP75TA3 PO; +CLOP75TA60 PO; -LISI-662 PO; +LISI-894 PO
[2021-11-11] MEDS ORDERED: NITROGLYCERIN 0.4 MG SUBLINGUAL TABLET #25 SL ONE (07:30)
[2021-11-11] MEDS ORDERED: ASPIRIN 81 MG CHEWABLE TABLET PO ONE (07:30)
[2021-11-11 07:41] LABS: ANION GAP 9 mmol/L (8-16); CALCIUM, TOTAL 8.5 mg/dL (8.8-10.5); CARBON DIOXIDE 27 mmol/L (22-29); CHLORIDE 104 mmol/L (98-107); CREATININE 1.02 mg/dL (0.60-1.30); GLOMERULAR FILTR. RATE CALC > 60 mL/min (>60); GLUCOSE,RANDOM 117 mg/dL (70-110); SODIUM SERUM 140 mmol/L (136-145); UREA NITROGEN, BLOOD 15 mg/dL (7-18)
[2021-11-11 07:43] LABS: BASOPHILS % (AUTO) 0.4 % (0.0-2.0); EOSINOPHILS % (AUTO) 3.1 % (1.0-6.0); HEMATOCRIT 39.5 % (41-53); HEMOGLOBIN 13.8 g/dL (13.5-17.5); LYMPHOCYTES # (AUTO) 1.3 K/uL (1.0-4.8); MEAN CORPUSCULAR HEMOGLOBIN 32.2 pg (26.0-34.0); MEAN CORPUSCULAR VOLUME 92 fL (80-100); MONOCYTES # (AUTO) 0.5 K/uL (0.1-1.0); MONOCYTES % (AUTO) 9.5 % (2.0-9.0); NEUTROPHILS # (AUTO) 3.7 K/uL (1.8-7.7); PLATELET COUNT (AUTO) 207 K/uL (150-450); RED CELL DISTRIBUTION WIDTH 12.9 % (11.5-14.5)
[2021-11-11 07:51] LABS: B-TYPE NATRIURETIC PEPTIDE 216 pg/mL (0-100)
[2021-11-11 08:21] LABS: COVID AG,FIA SOURCE NASAL SWAB
[2021-11-11] MEDS ORDERED: MAGNESIUM HYDROXIDE SUSPENSION 30 ML UDCUP PO PRN (10:45)
[2021-11-11] MEDS ORDERED: MORPHINE SULFATE 2 MG/ML SYRINGE IVP PRN (10:45)
[2021-11-11] MEDS ORDERED: ACETAMINOPHEN 325 MG TABLET PO PRN (10:45)
[2021-11-11] MEDS ORDERED: BISACODYL 10 MG RECTAL RECTAL SUPPOSITORY PR PRN (10:45)
[2021-11-11] MEDS ORDERED: ONDANSETRON HCL 4 MG/2 ML VIAL IVP PRN (10:45)
[2021-11-11] MEDS ORDERED: HYDROCODONE/ACETAMINOPHEN 5-325 MG TABLET PO PRN (10:45)
[2021-11-11] MEDS ORDERED: ZOLPIDEM TARTRATE 5 MG TABLET PO PRN (10:45)
[2021-11-11 10:58] VITALS: BP 133/106
[2021-11-11 13:56] VITALS: BP 166/81
[2021-11-11] MEDS: HEPARIN SODIUM,PORCINE 5,000 UNITS/ML VIAL SQ SCH (16:27)
[2021-11-11 17:09] VITALS: BP 193/103
[2021-11-11 20:22] VITALS: BP 140/92
[2021-11-11] MEDS: RANOLAZINE 500 MG ER TABLET PO SCH (20:22)
[2021-11-11] MEDS: DOCUSATE SODIUM 100 MG CAPSULE PO SCH (20:23)
[2021-11-11] MEDS: ATORVASTATIN CALCIUM 40 MG TABLET PO SCH (20:23)
[2021-11-12] VITALS (7 sets, daily range): BP systolic 115–144; BP diastolic 63–88
[2021-11-12] MEDS: HEPARIN SODIUM,PORCINE 5,000 UNITS/ML VIAL SQ SCH ×4 (00:03→23:21)
[2021-11-12] MEDS ORDERED: ALBUTEROL SULFATE HFA 90 MCG/PUFF 8 GM INHALER IH PRN (06:30)
[2021-11-12 07:14] LABS: BASOPHILS % (AUTO) 0.4 % (0.0-2.0); EOSINOPHILS % (AUTO) 3.4 % (1.0-6.0); HEMATOCRIT 41.4 % (41-53); HEMOGLOBIN 14.5 g/dL (13.5-17.5); LYMPHOCYTES # (AUTO) 1.5 K/uL (1.0-4.8); LYMPHOCYTES % (AUTO) 24.6 % (22.0-44.0); MEAN CORPUSCULAR HEMOGLOBIN 32.5 pg (26.0-34.0); MEAN CORPUSCULAR HGB CONC 35.1 G/dL (31.0-37.0); MEAN CORPUSCULAR VOLUME 93 fL (80-100); MONOCYTES # (AUTO) 0.4 K/uL (0.1-1.0); MONOCYTES % (AUTO) 7.5 % (2.0-9.0); NEUTROPHILS # (AUTO) 3.8 K/uL (1.8-7.7); NEUTROPHILS % (AUTO) 64.1 % (40.0-70.0); PLATELET COUNT (AUTO) 209 K/uL (150-450); RED BLOOD CELL COUNT(AUTO) 4.48 MIL/uL (4.50-5.90); RED CELL DISTRIBUTION WIDTH 13.2 % (11.5-14.5)
[2021-11-12 07:22] LABS: ANION GAP 8 mmol/L (8-16); CALCIUM, TOTAL 8.8 mg/dL (8.8-10.5); CARBON DIOXIDE 29 mmol/L (22-29); CHLORIDE 104 mmol/L (98-107); CREATININE 1.07 mg/dL (0.60-1.30); GLOMERULAR FILTR. RATE CALC > 60 mL/min (>60); GLUCOSE,RANDOM 100 mg/dL (70-110); POTASSIUM 4.1 mmol/L (3.5-5.1); SODIUM SERUM 141 mmol/L (136-145); UREA NITROGEN, BLOOD 15 mg/dL (7-18)
[2021-11-12] MEDS: PANTOPRAZOLE SODIUM 40 MG DR TABLET PO SCH (08:18)
[2021-11-12] MEDS: AmLODIPine BESYLATE 10 MG TABLET PO SCH (08:18)
[2021-11-12] MEDS: DOCUSATE SODIUM 100 MG CAPSULE PO SCH ×2 (08:18→21:19)
[2021-11-12] MEDS: CLOPIDOGREL BISULFATE 75 MG TABLET PO SCH (08:19)
[2021-11-12] MEDS: METOPROLOL SUCCINATE 50 MG ER TABLET PO SCH (08:19)
[2021-11-12] MEDS: RANOLAZINE 500 MG ER TABLET PO SCH ×2 (08:19→21:19)
[2021-11-12] MEDS: LISINOPRIL 20 MG TABLET PO SCH (08:19)
[2021-11-12] MEDS: ASPIRIN 81 MG CHEWABLE TABLET PO SCH (08:19)
[2021-11-12] MEDS: IPRATROPIUM BROMIDE 0.5 MG/2.5 ML NEB SOLUTION NEB SCH ×2 (19:37→23:34)
[2021-11-12] MEDS: ALBUTEROL SULFATE 2.5 MG/0.5 ML NEB SOLUTION NEB SCH ×2 (19:37→23:34)
[2021-11-12] MEDS: ATORVASTATIN CALCIUM 40 MG TABLET PO SCH (21:18)
[2021-11-12] MEDS: CloNIDine HCL 0.1 MG TABLET PO SCH (21:20)
[2021-11-13] MEDS: IPRATROPIUM BROMIDE 0.5 MG/2.5 ML NEB SOLUTION NEB SCH ×6 (02:02→23:55)
[2021-11-13] MEDS: ALBUTEROL SULFATE 2.5 MG/0.5 ML NEB SOLUTION NEB SCH ×6 (02:02→23:55)
[2021-11-13 05:31] VITALS: BP 126/78
[2021-11-13 08:59] VITALS: BP 139/88
[2021-11-13] MEDS: HEPARIN SODIUM,PORCINE 5,000 UNITS/ML VIAL SQ SCH ×2 (09:03→15:40)
[2021-11-13] MEDS: DOCUSATE SODIUM 100 MG CAPSULE PO SCH ×2 (09:03→20:31)
[2021-11-13] MEDS: LISINOPRIL 20 MG TABLET PO SCH (09:03)
[2021-11-13] MEDS: AmLODIPine BESYLATE 10 MG TABLET PO SCH (09:03)
[2021-11-13] MEDS: CLOPIDOGREL BISULFATE 75 MG TABLET PO SCH (09:03)
[2021-11-13] MEDS: RANOLAZINE 500 MG ER TABLET PO SCH ×2 (09:03→20:31)
[2021-11-13] MEDS: PANTOPRAZOLE SODIUM 40 MG DR TABLET PO SCH (09:03)
[2021-11-13] MEDS: METOPROLOL SUCCINATE 50 MG ER TABLET PO SCH (09:03)
[2021-11-13] MEDS: ASPIRIN 81 MG CHEWABLE TABLET PO SCH (09:04)
[2021-11-13] MEDS ORDERED: ALBU8HFA IH (11:44)
[2021-11-13 12:00] VITALS: BP 123/79
[2021-11-13 13:09] LABS: BASOPHILS % (AUTO) 0.5 % (0.0-2.0); EOSINOPHILS % (AUTO) 2.5 % (1.0-6.0); HEMATOCRIT 42.1 % (41-53); HEMOGLOBIN 14.4 g/dL (13.5-17.5); LYMPHOCYTES # (AUTO) 1.6 K/uL (1.0-4.8); LYMPHOCYTES % (AUTO) 29.2 % (22.0-44.0); MEAN CORPUSCULAR HEMOGLOBIN 31.9 pg (26.0-34.0); MEAN CORPUSCULAR HGB CONC 34.1 G/dL (31.0-37.0); MEAN CORPUSCULAR VOLUME 94 fL (80-100); MONOCYTES # (AUTO) 0.5 K/uL (0.1-1.0); NEUTROPHILS # (AUTO) 3.1 K/uL (1.8-7.7); NEUTROPHILS % (AUTO) 57.8 % (40.0-70.0); PLATELET COUNT (AUTO) 211 K/uL (150-450)
[2021-11-13 13:24] LABS: CALCIUM, TOTAL 9.2 mg/dL (8.8-10.5); POTASSIUM 4.2 mmol/L (3.5-5.1)
[2021-11-13 13:39] LABS: CREATININE 1.21 mg/dL (0.60-1.30)
[2021-11-13 15:25] VITALS: BP 139/86
[2021-11-13 20:13] VITALS: BP 120/77
[2021-11-13] MEDS: ATORVASTATIN CALCIUM 40 MG TABLET PO SCH (20:31)
[2021-11-13] MEDS: CloNIDine HCL 0.1 MG TABLET PO SCH (20:31)
[2021-11-13] MEDS ORDERED: DOCUSATE SODIUM 100 MG CAPSULE PO SCH (21:00)
[2021-11-14 00:12] VITALS: BP 115/71
[2021-11-14] MEDS: HEPARIN SODIUM,PORCINE 5,000 UNITS/ML VIAL SQ SCH ×2 (00:32→09:30)
[2021-11-14] MEDS: IPRATROPIUM BROMIDE 0.5 MG/2.5 ML NEB SOLUTION NEB SCH ×3 (03:00→11:48)
[2021-11-14] MEDS: ALBUTEROL SULFATE 2.5 MG/0.5 ML NEB SOLUTION NEB SCH ×3 (03:00→11:48)
[2021-11-14 06:27] VITALS: BP 121/68
[2021-11-14] MEDS ORDERED: BENZOCAINE 20% 50 MCG/SPRAY 57 GM ONE (07:48)
[2021-11-14] MEDS ORDERED: MIDAZOLAM HCL 2 MG/2 ML VIAL ONE (07:48)
[2021-11-14] MEDS ORDERED: FentaNYL CITRATE PF 100 MCG/2 ML VIAL ONE (07:48)
[2021-11-14 07:49] VITALS: BP 117/55
[2021-11-14 07:49] LABS: ANION GAP 11 mmol/L (8-16); CALCIUM, TOTAL 9.7 mg/dL (8.8-10.5); CARBON DIOXIDE 26 mmol/L (22-29); CHLORIDE 103 mmol/L (98-107); CREATININE 1.14 mg/dL (0.60-1.30); GLOMERULAR FILTR. RATE CALC > 60 mL/min (>60); GLUCOSE,RANDOM 98 mg/dL (70-110); POTASSIUM 4.3 mmol/L (3.5-5.1); SODIUM SERUM 140 mmol/L (136-145); UREA NITROGEN, BLOOD 20 mg/dL (7-18)
[2021-11-14] MEDS ORDERED: FentaNYL CITRATE PF 100 MCG/2 ML VIAL IVP ONE ×2 (08:30)
[2021-11-14] MEDS ORDERED: BENZOCAINE 20% 50 MCG/SPRAY 57 GM TP ONE (08:30)
[2021-11-14] MEDS ORDERED: MIDAZOLAM HCL 2 MG/2 ML VIAL IVP ONE ×2 (08:30)
[2021-11-14 08:39] VITALS: BP 106/59
[2021-11-14 09:20] VITALS: BP 121/94
[2021-11-14 09:24] LABS: BASOPHILS % (AUTO) 0.3 % (0.0-2.0); EOSINOPHILS % (AUTO) 2.5 % (1.0-6.0); HEMATOCRIT 40.3 % (41-53); LYMPHOCYTES # (AUTO) 1.5 K/uL (1.0-4.8); LYMPHOCYTES % (AUTO) 24.9 % (22.0-44.0); MEAN CORPUSCULAR HEMOGLOBIN 32.3 pg (26.0-34.0); MEAN CORPUSCULAR HGB CONC 34.7 G/dL (31.0-37.0); MEAN CORPUSCULAR VOLUME 93 fL (80-100); MONOCYTES # (AUTO) 0.5 K/uL (0.1-1.0); MONOCYTES % (AUTO) 9.4 % (2.0-9.0); NEUTROPHILS # (AUTO) 3.7 K/uL (1.8-7.7); NEUTROPHILS % (AUTO) 62.9 % (40.0-70.0); PLATELET COUNT (AUTO) 221 K/uL (150-450); RED BLOOD CELL COUNT(AUTO) 4.32 MIL/uL (4.50-5.90); RED CELL DISTRIBUTION WIDTH 13.1 % (11.5-14.5)
[2021-11-14] MEDS: RANOLAZINE 500 MG ER TABLET PO SCH (09:29)
[2021-11-14] MEDS: METOPROLOL SUCCINATE 50 MG ER TABLET PO SCH (09:29)
[2021-11-14] MEDS: ASPIRIN 81 MG CHEWABLE TABLET PO SCH (09:29)
[2021-11-14] MEDS: LISINOPRIL 20 MG TABLET PO SCH (09:29)
[2021-11-14] MEDS: CLOPIDOGREL BISULFATE 75 MG TABLET PO SCH (09:29)
[2021-11-14] MEDS: AmLODIPine BESYLATE 10 MG TABLET PO SCH (09:29)
[2021-11-14] MEDS: PANTOPRAZOLE SODIUM 40 MG DR TABLET PO SCH (09:29)
== END 2021-11-14 11:40 | disposition home or self-care (01) ==
LOC: EMS 07:05 → INTOOBSV 09:46 → 5S 09:46
PROVIDERS: ADMIT Internal Medicine; ATTEND Internal Medicine
DX: R07.89 Other chest pain (principal); Z20.822 Contact with and (suspected) exposure to COVID-19; I25.10 Atherosclerotic heart disease of native coronary artery without angina pectoris; E66.9 Obesity, unspecified; E78.5 Hyperlipidemia, unspecified; I11.0 Hypertensive heart disease with heart failure; I50.9 Heart failure, unspecified; I25.2 Old myocardial infarction; I34.0 Nonrheumatic mitral (valve) insufficiency; J44.9 Chronic obstructive pulmonary disease, unspecified; I63.9 Cerebral infarction, unspecified; Z86.73 Personal history of transient ischemic attack (TIA), and cerebral infarction without residual deficits; Z87.891 Personal history of nicotine dependence; Z95.5 Presence of coronary angioplasty implant and graft; Z98.890 Other specified postprocedural states
CPT/HCPCS: 36415 ×4; 71045; 80048 ×4; 83880; 84484; 85025 ×4; 87426; 93005; 93306; 93312; 94640 ×3; 96372 ×4; 96374; 99219 ×4; 99285; J1644 ×4; J2250; J2405; J3010; J3535; J7613

== ENCOUNTER 2021-12-07 14:45 | Inpatient (IN) | payer OTHER ==
[~2021-12-07] VITALS: Ht 162.6 cm; Wt 79.5 kg
[~2021-12-07 14:45] MED LIST changes: +ALBU8HFA IH
[2021-12-07 15:25] LABS: BASOPHILS % (AUTO) 0.5 % (0.0-2.0); EOSINOPHILS % (AUTO) 2.8 % (1.0-6.0); HEMATOCRIT 38.2 % (41-53); HEMOGLOBIN 13.1 g/dL (13.5-17.5); LYMPHOCYTES # (AUTO) 1.3 K/uL (1.0-4.8); LYMPHOCYTES % (AUTO) 19.3 % (22.0-44.0); MEAN CORPUSCULAR HGB CONC 34.2 G/dL (31.0-37.0); MEAN CORPUSCULAR VOLUME 94 fL (80-100); MONOCYTES # (AUTO) 0.5 K/uL (0.1-1.0); MONOCYTES % (AUTO) 6.8 % (2.0-9.0); NEUTROPHILS # (AUTO) 4.7 K/uL (1.8-7.7); NEUTROPHILS % (AUTO) 70.6 % (40.0-70.0); PLATELET COUNT (AUTO) 205 K/uL (150-450); RED BLOOD CELL COUNT(AUTO) 4.09 MIL/uL (4.50-5.90); RED CELL DISTRIBUTION WIDTH 13.2 % (11.5-14.5)
[2021-12-07 15:36] LABS: CALCIUM, TOTAL 8.5 mg/dL (8.8-10.5); CREATININE 1.27 mg/dL (0.60-1.30); POTASSIUM 3.6 mmol/L (3.5-5.1)
[2021-12-07 15:39] LABS: ALBUMIN 3.2 g/dL (3.4-5.0); BILIRUBIN,TOTAL 0.5 mg/dL (0.1-1.0); TOTAL PROTEIN, SERUM 6.9 g/dL (6.4-8.2)
[2021-12-07 15:40] LABS: PROTHROMBIN TIME 10.8 SEC (9.4-11.6)
[2021-12-07] MEDS ORDERED: ACETAMINOPHEN 500 MG TABLET PO ONE (16:15)
[2021-12-07 17:43] LABS: COVID AG,FIA SOURCE NASAL SWAB
[2021-12-07 17:45] LABS: APPEARANCE,URINE CLEAR (CLEAR); BILIRUBIN,URINE NEGATIVE (NEGATIVE); GLUCOSE, URINE (UA) NEGATIVE (NEGATIVE); KETONES,URINE NEGATIVE (NEGATIVE); LEUKOCYTE ESTERASE ,URINE NEGATIVE (NEGATIVE); NITRATE,URINE NEGATIVE (NEGATIVE); OCCULT BLOOD,URINE NEGATIVE (NEGATIVE); PH,URINE 5.5 (5.0-8.0); PROTEIN,URINE NEGATIVE (NEGATIVE); UROBILINOGEN,URINE <=1.0 mg/dL (<=1.0)
[2021-12-07] MEDS ORDERED: FUROSEMIDE 40 MG/4 ML VIAL IVP ONE (18:00)
[2021-12-07] MEDS ORDERED: ONDANSETRON HCL 4 MG/2 ML VIAL IVP PRN (18:00)
[2021-12-07] MEDS ORDERED: ACETAMINOPHEN 325 MG TABLET PO PRN (18:00)
[2021-12-07] MEDS ORDERED: MAGNESIUM HYDROXIDE SUSPENSION 30 ML UDCUP PO PRN (18:00)
[2021-12-07] MEDS ORDERED: ALBUTEROL SULFATE HFA 90 MCG/PUFF 8 GM INHALER IH PRN (18:00)
[2021-12-07] MEDS ORDERED: IPRATROPIUM BROMIDE 0.5 MG/2.5 ML NEB SOLUTION NEB PRN (18:00)
[2021-12-07] MEDS ORDERED: HYDROCODONE/ACETAMINOPHEN 5-325 MG TABLET PO PRN (18:00)
[2021-12-07] MEDS ORDERED: ALBUTEROL SULFATE 2.5 MG/0.5 ML NEB SOLUTION NEB PRN (18:00)
[2021-12-07] MEDS ORDERED: BISACODYL 10 MG RECTAL RECTAL SUPPOSITORY PR PRN (18:00)
[2021-12-07 19:07] VITALS: BP 146/82
[2021-12-07] MEDS ORDERED: [UNRECOGNIZED DRUG - OTHER] PO SCH (21:00)
[2021-12-07] MEDS: ZOLPIDEM TARTRATE 5 MG TABLET PO PRN (21:02)
[2021-12-07] MEDS: DOCUSATE SODIUM 100 MG CAPSULE PO SCH (21:02)
[2021-12-07] MEDS: ATORVASTATIN CALCIUM 40 MG TABLET PO SCH (21:02)
[2021-12-07] MEDS: RANOLAZINE 500 MG ER TABLET PO SCH (21:02)
[2021-12-07 23:30] VITALS: BP 110/74
[2021-12-08] MEDS: MORPHINE SULFATE 2 MG/ML SYRINGE IVP PRN ×2 (01:35→08:53)
[2021-12-08] MEDS: HEPARIN SODIUM,PORCINE 5,000 UNITS/ML VIAL SQ SCH ×3 (01:36→16:59)
[2021-12-08 03:55] VITALS: BP 125/96
[2021-12-08] MEDS ORDERED: INFLUENZA VIRUS VACCINE QVS 2021-22 (6MO+)/PF 60 MCG/0.5 ML SYRINGE IM. ONE (04:15)
[2021-12-08 07:51] VITALS: BP 150/87
[2021-12-08] MEDS: FUROSEMIDE 40 MG/4 ML VIAL IVP SCH (08:37)
[2021-12-08] MEDS: PANTOPRAZOLE SODIUM 40 MG/VIAL IVP SCH (08:37)
[2021-12-08] MEDS: DOCUSATE SODIUM 100 MG CAPSULE PO SCH ×2 (08:38→20:01)
[2021-12-08] MEDS: ASPIRIN 81 MG CHEWABLE TABLET PO SCH (08:38)
[2021-12-08] MEDS: METOPROLOL SUCCINATE 50 MG ER TABLET PO SCH (08:39)
[2021-12-08] MEDS: AmLODIPine BESYLATE 10 MG TABLET PO SCH (08:39)
[2021-12-08] MEDS: CLOPIDOGREL BISULFATE 75 MG TABLET PO SCH (08:39)
[2021-12-08] MEDS: RANOLAZINE 500 MG ER TABLET PO SCH ×2 (08:39→20:00)
[2021-12-08] MEDS: LISINOPRIL 20 MG TABLET PO SCH (08:40)
[2021-12-08 13:03] LABS: BASOPHILS % (AUTO) 0.6 % (0.0-2.0); EOSINOPHILS % (AUTO) 3.5 % (1.0-6.0); HEMATOCRIT 42.9 % (41-53); LYMPHOCYTES % (AUTO) 30.5 % (22.0-44.0); MEAN CORPUSCULAR HEMOGLOBIN 32.3 pg (26.0-34.0); MEAN CORPUSCULAR HGB CONC 34.9 G/dL (31.0-37.0); MEAN CORPUSCULAR VOLUME 93 fL (80-100); MONOCYTES # (AUTO) 0.8 K/uL (0.1-1.0); MONOCYTES % (AUTO) 12.1 % (2.0-9.0); NEUTROPHILS # (AUTO) 3.5 K/uL (1.8-7.7); NEUTROPHILS % (AUTO) 53.3 % (40.0-70.0); PLATELET COUNT (AUTO) 228 K/uL (150-450); RED BLOOD CELL COUNT(AUTO) 4.63 MIL/uL (4.50-5.90); RED CELL DISTRIBUTION WIDTH 13.2 % (11.5-14.5)
[2021-12-08 13:05] LABS: CALCIUM, TOTAL 9.4 mg/dL (8.8-10.5); CREATININE 1.25 mg/dL (0.60-1.30); POTASSIUM 3.7 mmol/L (3.5-5.1)
[2021-12-08 13:11] LABS: ALBUMIN 3.5 g/dL (3.4-5.0); BILIRUBIN,TOTAL 0.8 mg/dL (0.1-1.0); TOTAL PROTEIN, SERUM 7.8 g/dL (6.4-8.2)
[2021-12-08 16:45] VITALS: BP 121/73
[2021-12-08 20:00] VITALS: BP 117/81
[2021-12-08] MEDS: ATORVASTATIN CALCIUM 40 MG TABLET PO SCH (20:00)
[2021-12-08] MEDS: ZOLPIDEM TARTRATE 5 MG TABLET PO PRN (20:05)
[2021-12-09 07:40] VITALS: BP 134/74
[2021-12-09] MEDS: RANOLAZINE 500 MG ER TABLET PO SCH (08:13)
[2021-12-09] MEDS: METOPROLOL SUCCINATE 50 MG ER TABLET PO SCH (08:13)
[2021-12-09] MEDS: CLOPIDOGREL BISULFATE 75 MG TABLET PO SCH (08:14)
[2021-12-09] MEDS: HEPARIN SODIUM,PORCINE 5,000 UNITS/ML VIAL SQ SCH ×2 (08:14)
[2021-12-09] MEDS: FUROSEMIDE 40 MG/4 ML VIAL IVP SCH (08:14)
[2021-12-09] MEDS: DOCUSATE SODIUM 100 MG CAPSULE PO SCH (08:14)
[2021-12-09] MEDS: LISINOPRIL 20 MG TABLET PO SCH (08:14)
[2021-12-09] MEDS: ASPIRIN 81 MG CHEWABLE TABLET PO SCH (08:14)
[2021-12-09] MEDS: AmLODIPine BESYLATE 10 MG TABLET PO SCH (08:14)
[2021-12-09] MEDS: PANTOPRAZOLE SODIUM 40 MG/VIAL IVP SCH (08:15)
[2021-12-09 11:12] VITALS: BP 113/80
[2021-12-09] MEDS: MORPHINE SULFATE 2 MG/ML SYRINGE IVP PRN (11:17)
[2021-12-09] MEDS ORDERED: ATOR20TA65 PO (14:37)
== END 2021-12-09 15:40 | disposition home or self-care (01) | DRG 194 ==
LOC: EMS 14:45 → 5S 17:49
PROVIDERS: ADMIT Hospitalist; ATTEND Hospitalist
DX: I11.0 Hypertensive heart disease with heart failure (principal); E78.5 Hyperlipidemia, unspecified; R07.9 Chest pain, unspecified; I25.10 Atherosclerotic heart disease of native coronary artery without angina pectoris; I50.23 Acute on chronic systolic (congestive) heart failure; I34.0 Nonrheumatic mitral (valve) insufficiency; I44.7 Left bundle-branch block, unspecified; Z20.822 Contact with and (suspected) exposure to COVID-19; Z91.11 Patient's noncompliance with dietary regimen; Z79.82 Long term (current) use of aspirin; Z79.899 Other long term (current) drug therapy; Z23 Encounter for immunization
CPT/HCPCS: 71045; 80053; 81003; 83880; 84484; 85025; 85610; 85730; 90686; 93005; 99285; C9113; G0378; J1644; J1940; J2270; 36415-L1; 36415-TC; G0008

== ENCOUNTER 2022-08-09 04:52 | Emergency (ER) | payer OTHER ==
[~2022-08-09] VITALS: Ht 165.1 cm; Wt 93.2 kg
[~2022-08-09 04:52] MED LIST changes: +ATOR20TA65 PO
[2022-08-09] MEDS ORDERED: ASPIRIN 81 MG CHEWABLE TABLET PO ONE (06:15)
[2022-08-09] MEDS ORDERED: NITROGLYCERIN 0.4 MG SUBLINGUAL TABLET #25 SL ONE (07:00)
[2022-08-09 07:03] LABS: BASOPHILS % (AUTO) 0.6 % (0.0-2.0); EOSINOPHILS % (AUTO) 2.4 % (1.0-6.0); HEMATOCRIT 37.1 % (41-53); HEMOGLOBIN 13.1 g/dL (13.5-17.5); LYMPHOCYTES # (AUTO) 1.6 K/uL (1.0-4.8); LYMPHOCYTES % (AUTO) 30.8 % (22.0-44.0); MEAN CORPUSCULAR HEMOGLOBIN 32.7 pg (26.0-34.0); MEAN CORPUSCULAR HGB CONC 35.3 G/dL (31.0-37.0); MEAN CORPUSCULAR VOLUME 93 fL (80-100); MONOCYTES # (AUTO) 0.4 K/uL (0.1-1.0); MONOCYTES % (AUTO) 6.7 % (2.0-9.0); NEUTROPHILS # (AUTO) 3.1 K/uL (1.8-7.7); NEUTROPHILS % (AUTO) 59.5 % (40.0-70.0); PLATELET COUNT (AUTO) 193 K/uL (150-450); RED BLOOD CELL COUNT(AUTO) 4.01 MIL/uL (4.50-5.90); RED CELL DISTRIBUTION WIDTH 13.3 % (11.5-14.5)
[2022-08-09 07:04] LABS: ANION GAP 12 mmol/L (8-16); CARBON DIOXIDE 23 mmol/L (22-29); CHLORIDE 105 mmol/L (98-107); GLUCOSE,RANDOM 91 mg/dL (70-110); POTASSIUM 3.9 mmol/L (3.5-5.1); SODIUM SERUM 140 mmol/L (136-145); UREA NITROGEN, BLOOD 14 mg/dL (7-18)
[2022-08-09 07:06] LABS: GLOMERULAR FILTR. RATE CALC > 60 mL/min (>60)
[2022-08-09 07:14] LABS: COVID AG,FIA SOURCE NASAL SWAB
[2022-08-09 07:18] LABS: ALANINE AMINOTRANSFERASE 18 U/L (12-78); ALBUMIN 3.5 g/dL (3.4-5.0); ALKALINE PHOSPHATASE 67 U/L (46-116); ASPARTATE AMINOTRANSFERASE 12 U/L (15-37); BILIRUBIN,TOTAL 0.4 mg/dL (0.1-1.0)
[2022-08-09 07:36] LABS: B-TYPE NATRIURETIC PEPTIDE 552 pg/mL (0-100)
[2022-08-09 08:10] LABS: INFLUENZA TYPE A NEGATIVE FOR TYPE A (NEGATIVE); INFLUENZA TYPE B POSITIVE FOR TYPE B (NEGATIVE)
[2022-08-09] MEDS ORDERED: FUROSEMIDE 40 MG/4 ML VIAL IVP ONE (08:15)
[2022-08-09] MEDS ORDERED: ACETAMINOPHEN 325 MG TABLET PO PRN (08:45)
[2022-08-09] MEDS ORDERED: OSELTAMIVIR PHOSPHATE 75 MG CAPSULE PO ONE (08:45)
[2022-08-09] MEDS ORDERED: ALBUTEROL SULFATE 2.5 MG/0.5 ML NEB SOLUTION NEB PRN (08:45)
[2022-08-09] MEDS ORDERED: ONDANSETRON HCL 4 MG/2 ML VIAL IVP PRN (08:45)
[2022-08-09] MEDS ORDERED: OSELTAMIVIR PHOSPHATE 75 MG CAPSULE PO SCH (09:00)
[2022-08-09] MEDS ORDERED: FAMOTIDINE 20 MG TABLET PO SCH (09:00)
[2022-08-09] MEDS ORDERED: SPIRONOLACTONE 25 MG TABLET PO SCH (09:00)
[2022-08-09] MEDS ORDERED: METOPROLOL SUCCINATE 25 MG ER TABLET PO SCH (09:00)
[2022-08-09] MEDS ORDERED: ASPIRIN 81 MG CHEWABLE TABLET PO SCH (09:00)
[2022-08-09] MEDS ORDERED: LISINOPRIL 10 MG TABLET PO SCH (09:00)
[2022-08-09] MEDS: DOCUSATE SODIUM 100 MG CAPSULE PO SCH ×2 (09:00→09:36)
[2022-08-09 09:59] VITALS: BP 136/82
[2022-08-09] MEDS ORDERED: HEPARIN SODIUM,PORCINE 5,000 UNITS/ML VIAL SQ SCH (16:00)
[2022-08-09] MEDS ORDERED: ATORVASTATIN CALCIUM 20 MG TABLET PO SCH (21:00)
== END 2022-08-09 10:33 | disposition left against medical advice (07) ==
LOC: EMS 04:52
DX: I11.0 Hypertensive heart disease with heart failure (principal); I50.9 Heart failure, unspecified; J10.1 Influenza due to other identified influenza virus with other respiratory manifestations; I25.10 Atherosclerotic heart disease of native coronary artery without angina pectoris; R07.9 Chest pain, unspecified; Z98.890 Other specified postprocedural states; Z20.822 Contact with and (suspected) exposure to COVID-19
CPT/HCPCS: 99291; 96374; 71045; 87426; 80053; 83880; 84484; 85025; 87804; 36415; 93005; J1940; 99285

== ENCOUNTER 2022-09-12 07:21 | Inpatient (IN) | payer OTHER ==
[~2022-09-12] VITALS: Ht 165.1 cm; Wt 87.0 kg
[2022-09-12 08:46] LABS: COVID AG,FIA SOURCE NASOPHARYNGEAL
[2022-09-12 08:52] LABS: BASOPHILS % (AUTO) 0.5 % (0.0-2.0); EOSINOPHILS % (AUTO) 2.2 % (1.0-6.0); HEMATOCRIT 33.3 % (41-53); HEMOGLOBIN 11.5 g/dL (13.5-17.5); LYMPHOCYTES # (AUTO) 1.5 K/uL (1.0-4.8); LYMPHOCYTES % (AUTO) 19.4 % (22.0-44.0); MEAN CORPUSCULAR HEMOGLOBIN 32.2 pg (26.0-34.0); MEAN CORPUSCULAR HGB CONC 34.4 G/dL (31.0-37.0); MEAN CORPUSCULAR VOLUME 94 fL (80-100); MONOCYTES # (AUTO) 0.7 K/uL (0.1-1.0); MONOCYTES % (AUTO) 9.5 % (2.0-9.0); NEUTROPHILS # (AUTO) 5.3 K/uL (1.8-7.7); NEUTROPHILS % (AUTO) 68.4 % (40.0-70.0); PLATELET COUNT (AUTO) 446 K/uL (150-450); RED BLOOD CELL COUNT(AUTO) 3.56 MIL/uL (4.50-5.90); RED CELL DISTRIBUTION WIDTH 12.5 % (11.5-14.5)
[2022-09-12 09:00] LABS: ANION GAP 9 mmol/L (8-16); CALCIUM, TOTAL 9.7 mg/dL (8.8-10.5); CARBON DIOXIDE 28 mmol/L (22-29); CHLORIDE 104 mmol/L (98-107); CREATININE 1.38 mg/dL (0.60-1.30); GLUCOSE,RANDOM 105 mg/dL (70-110); POTASSIUM 4.3 mmol/L (3.5-5.1); SODIUM SERUM 141 mmol/L (136-145); UREA NITROGEN, BLOOD 21 mg/dL (7-18)
[2022-09-12 09:04] LABS: GLOMERULAR FILTR. RATE CALC 52 mL/min (>60)
[2022-09-12 09:06] LABS: ALANINE AMINOTRANSFERASE 26 U/L (12-78); ALBUMIN 3.2 g/dL (3.4-5.0); ALKALINE PHOSPHATASE 62 U/L (46-116); ASPARTATE AMINOTRANSFERASE 21 U/L (15-37); BILIRUBIN,TOTAL 0.4 mg/dL (0.1-1.0); LIPASE 77 U/L (73-393)
[2022-09-12 09:13] LABS: LACTIC ACID 1.2 mmol/L (0.4-2.0)
[2022-09-12] MEDS ORDERED: HYDROmorphone HCL 2 MG/ML SYRINGE IVP ONE ×2 (09:15→21:30)
[2022-09-12] MEDS ORDERED: ONDANSETRON HCL 4 MG/2 ML VIAL IVP ONE (09:15)
[2022-09-12 09:21] LABS: B-TYPE NATRIURETIC PEPTIDE 1040 pg/mL (0-100)
[2022-09-12] MEDS ORDERED: ROSU20TA73 PO (16:34)
[2022-09-12] MEDS ORDERED: FUROSEMIDE 20 MG/2 ML VIAL IVP ONE (17:30)
[2022-09-12] MEDS: RIVAROXABAN 15 MG TABLET PO SCH (17:40)
[2022-09-12] MEDS: ASPIRIN 81 MG CHEWABLE TABLET PO SCH (17:40)
[2022-09-12] MEDS ORDERED: KETOROLAC TROMETHAMINE 30 MG/ML VIAL IVP ONE (18:30)
[2022-09-12 20:18] VITALS: BP 132/74
[2022-09-13] VITALS (7 sets, daily range): BP systolic 108–142; BP diastolic 68–81
[2022-09-13] MEDS ORDERED: ACETAMINOPHEN 325 MG TABLET PO ONE (05:30)
[2022-09-13 06:41] LABS: BASOPHILS % (AUTO) 0.3 % (0.0-2.0); EOSINOPHILS % (AUTO) 3.7 % (1.0-6.0); HEMOGLOBIN 10.9 g/dL (13.5-17.5); LYMPHOCYTES # (AUTO) 1.5 K/uL (1.0-4.8); LYMPHOCYTES % (AUTO) 20.2 % (22.0-44.0); MEAN CORPUSCULAR HEMOGLOBIN 32.3 pg (26.0-34.0); MEAN CORPUSCULAR HGB CONC 35.2 G/dL (31.0-37.0); MEAN CORPUSCULAR VOLUME 92 fL (80-100); MONOCYTES # (AUTO) 0.7 K/uL (0.1-1.0); MONOCYTES % (AUTO) 9.6 % (2.0-9.0); NEUTROPHILS # (AUTO) 4.9 K/uL (1.8-7.7); NEUTROPHILS % (AUTO) 66.2 % (40.0-70.0); PLATELET COUNT (AUTO) 416 K/uL (150-450); RED BLOOD CELL COUNT(AUTO) 3.37 MIL/uL (4.50-5.90); RED CELL DISTRIBUTION WIDTH 12.7 % (11.5-14.5)
[2022-09-13 06:57] LABS: CALCIUM, TOTAL 8.7 mg/dL (8.8-10.5); CREATININE 1.26 mg/dL (0.60-1.30); POTASSIUM 4.1 mmol/L (3.5-5.1)
[2022-09-13] MEDS: FUROSEMIDE 20 MG TABLET PO SCH (08:15)
[2022-09-13] MEDS: METOPROLOL SUCCINATE 25 MG ER TABLET PO SCH (08:15)
[2022-09-13] MEDS: ASPIRIN 81 MG CHEWABLE TABLET PO SCH (08:15)
[2022-09-13] MEDS: ATORVASTATIN CALCIUM 40 MG TABLET PO SCH (08:15)
[2022-09-13] MEDS: LOSARTAN POTASSIUM 25 MG TABLET PO SCH (08:15)
[2022-09-13] MEDS ORDERED: CALCIUM CARBONATE 500 MG CHEWABLE TABLET CHEW PRN (14:00)
[2022-09-13] MEDS ORDERED: ACETAMINOPHEN 325 MG TABLET PO PRN (14:00)
[2022-09-13] MEDS: RIVAROXABAN 15 MG TABLET PO SCH (17:31)
[2022-09-13] MEDS: IBUPROFEN 800 MG TABLET PO PRN (23:25)
[2022-09-14 08:01] VITALS: BP 131/79
[2022-09-14] MEDS: FUROSEMIDE 20 MG TABLET PO SCH (09:06)
[2022-09-14] MEDS: ASPIRIN 81 MG CHEWABLE TABLET PO SCH (09:06)
[2022-09-14] MEDS: ATORVASTATIN CALCIUM 40 MG TABLET PO SCH (09:07)
[2022-09-14] MEDS: LOSARTAN POTASSIUM 25 MG TABLET PO SCH (09:07)
[2022-09-14] MEDS: METOPROLOL SUCCINATE 25 MG ER TABLET PO SCH (09:07)
[2022-09-14] MEDS: IBUPROFEN 800 MG TABLET PO PRN (09:07)
[2022-09-14] MEDS ORDERED: LOSA25TA2 PO (11:58)
[2022-09-14] MEDS ORDERED: METO25XL PO (11:58)
[2022-09-14] MEDS ORDERED: ATOR40TA71 PO (11:58)
[2022-09-14] MEDS ORDERED: RIVA15TA PO (11:58)
[2022-09-14] MEDS ORDERED: ASPI81 PO (11:58)
[2022-09-14] MEDS ORDERED: FURO20 PO (11:58)
== END 2022-09-14 13:05 | disposition home or self-care (01) | DRG 194 ==
LOC: EMS 07:21 → 5S 18:46
PROVIDERS: ADMIT Hospitalist; ATTEND Hospitalist
DX: I11.0 Hypertensive heart disease with heart failure (principal); N17.9 Acute kidney failure, unspecified; Z79.01 Long term (current) use of anticoagulants; Z95.1 Presence of aortocoronary bypass graft; R07.89 Other chest pain; I25.10 Atherosclerotic heart disease of native coronary artery without angina pectoris; I50.23 Acute on chronic systolic (congestive) heart failure; D64.9 Anemia, unspecified; E78.00 Pure hypercholesterolemia, unspecified; I25.5 Ischemic cardiomyopathy; I44.7 Left bundle-branch block, unspecified; I34.0 Nonrheumatic mitral (valve) insufficiency; J44.9 Chronic obstructive pulmonary disease, unspecified; Z20.822 Contact with and (suspected) exposure to COVID-19; Z59.00 Homelessness unspecified; Z87.891 Personal history of nicotine dependence; Z95.2 Presence of prosthetic heart valve; Z79.899 Other long term (current) drug therapy
CPT/HCPCS: 71045; 80048; 80053; 83605; 83690; 83880; 84484; 85025; 93005; 93306; 99291; G0480; J1170; J1885; J1940; J2405; 36415-L1; 36415-TC

== ENCOUNTER 2022-11-10 09:20 | Emergency (ER) | payer OTHER ==
[~2022-11-10] VITALS: Ht 165.1 cm; Wt 86.4 kg
[~2022-11-10 09:20] MED LIST changes: -AMLO-258 PO; +ASPI81 PO; -ASPI81TA39 PO; -ATOR20TA65 PO; +ATOR40TA71 PO; -ATOR80TA PO; +CARV12 PO; -CLOP75TA60 PO; +FURO-152 PO; -LISI-894 PO; -METO50TA9 PO; -RANO500T3 PO; +SACU1TAB PO; +TICA90TA PO; +TRAZ-257 PO
[2022-11-10 10:41] LABS: BASOPHILS % (AUTO) 0.6 % (0.0-2.0); EOSINOPHILS % (AUTO) 3.9 % (1.0-6.0); LYMPHOCYTES # (AUTO) 1.7 K/uL (1.0-4.8); LYMPHOCYTES % (AUTO) 30.5 % (22.0-44.0); MEAN CORPUSCULAR HGB CONC 32.5 G/dL (31.0-37.0); MEAN CORPUSCULAR VOLUME 89 fL (80-100); MONOCYTES # (AUTO) 0.5 K/uL (0.1-1.0); MONOCYTES % (AUTO) 8.3 % (2.0-9.0); NEUTROPHILS # (AUTO) 3.2 K/uL (1.8-7.7); NEUTROPHILS % (AUTO) 56.7 % (40.0-70.0); PLATELET COUNT (AUTO) 277 K/uL (150-450); RED BLOOD CELL COUNT(AUTO) 4.48 MIL/uL (4.50-5.90); RED CELL DISTRIBUTION WIDTH 14.1 % (11.5-14.5)
[2022-11-10] MEDS: ASPIRIN 325 MG TABLET PO ONE ×2 (10:45→11:07)
[2022-11-10] MEDS: NITROGLYCERIN 0.4 MG SUBLINGUAL TABLET #25 SL ONE ×2 (10:45→11:07)
[2022-11-10] MEDS: NITROGLYCERIN 2% (1 GM=INCH) OINTMENT PACKET TP ONE ×2 (10:46→11:06)
[2022-11-10 10:53] LABS: ANION GAP 11 mmol/L (8-16); CARBON DIOXIDE 27 mmol/L (22-29); CHLORIDE 103 mmol/L (98-107); CREATININE 1.07 mg/dL (0.60-1.30); GLOMERULAR FILTR. RATE CALC > 60 mL/min (>60); GLUCOSE,RANDOM 91 mg/dL (70-110); POTASSIUM 3.9 mmol/L (3.5-5.1); SODIUM SERUM 141 mmol/L (136-145); UREA NITROGEN, BLOOD 21 mg/dL (7-18)
[2022-11-10 10:59] LABS: ALANINE AMINOTRANSFERASE 17 U/L (12-78); ALBUMIN 3.7 g/dL (3.4-5.0); ALKALINE PHOSPHATASE 84 U/L (46-116); ASPARTATE AMINOTRANSFERASE 15 U/L (15-37); BILIRUBIN,TOTAL 0.3 mg/dL (0.1-1.0); LIPASE 61 U/L (73-393)
[2022-11-10] MEDS ORDERED: MORPHINE SULFATE 4 MG/ML SYRINGE IVP ONE (11:00)
[2022-11-10] MEDS ORDERED: ONDANSETRON HCL 4 MG/2 ML VIAL IVP ONE (11:00)
[2022-11-10 11:14] LABS: B-TYPE NATRIURETIC PEPTIDE 361 pg/mL (0-100)
[2022-11-10 11:15] LABS: LACTIC ACID 0.9 mmol/L (0.4-2.0)
[2022-11-10] MEDS ORDERED: DAPA5TAB PO (11:55)
[2022-11-10] MEDS ORDERED: ASPI-1444 PO (11:55)
[2022-11-10] MEDS ORDERED: METO-391 PO (11:55)
[2022-11-10] MEDS ORDERED: FURO40TA5 PO (11:55)
[2022-11-10] MEDS ORDERED: AMLO10TA55 PO (11:55)
[2022-11-10] MEDS ORDERED: LISI40TA9 PO (11:55)
[2022-11-10] MEDS ORDERED: LOSA-381 PO (11:55)
[2022-11-10] MEDS ORDERED: NITR0.4T50 SL (11:55)
[2022-11-10 12:17] VITALS: BP 93/66
[2022-11-10 12:21] LABS: COVID AG,FIA SOURCE NASOPHARYNGEAL
[2022-11-10] MEDS ORDERED: LORA-999 PO (14:02)
== END 2022-11-10 14:36 | disposition home or self-care (01) ==
LOC: EMS 09:25
DX: R07.89 Other chest pain (principal); I11.0 Hypertensive heart disease with heart failure; I43 Cardiomyopathy in diseases classified elsewhere; J44.9 Chronic obstructive pulmonary disease, unspecified; E78.00 Pure hypercholesterolemia, unspecified; Z87.891 Personal history of nicotine dependence; Z98.890 Other specified postprocedural states; Z20.822 Contact with and (suspected) exposure to COVID-19
CPT/HCPCS: 99285; 96374; 71045; 96375; 87426; 80053; 83605; 83690; 83880; 84484; 85025; 36415; 93005; J2270; J2405

== ENCOUNTER 2022-12-14 12:38 | Emergency (ER) | payer OTHER ==
[~2022-12-14] VITALS: Ht 167.6 cm; Wt 84.1 kg
[~2022-12-14 12:38] MED LIST changes: +AMLO10TA55 PO; +ASPI-1444 PO; -ASPI81 PO; -CARV12 PO; +DAPA5TAB PO; -FURO-152 PO; +FURO40TA5 PO; +LISI40TA9 PO; +LORA-999 PO; +METO-391 PO; +NITR0.4T50 SL
[2022-12-14 15:03] LABS: BASOPHILS % (AUTO) 0.5 % (0.0-2.0); EOSINOPHILS % (AUTO) 2.3 % (1.0-6.0); HEMATOCRIT 35.7 % (41-53); HEMOGLOBIN 11.6 g/dL (13.5-17.5); LYMPHOCYTES # (AUTO) 1.3 K/uL (1.0-4.8); LYMPHOCYTES % (AUTO) 19.8 % (22.0-44.0); MEAN CORPUSCULAR HEMOGLOBIN 28.3 pg (26.0-34.0); MEAN CORPUSCULAR HGB CONC 32.3 G/dL (31.0-37.0); MEAN CORPUSCULAR VOLUME 88 fL (80-100); MONOCYTES # (AUTO) 0.6 K/uL (0.1-1.0); MONOCYTES % (AUTO) 9.3 % (2.0-9.0); NEUTROPHILS # (AUTO) 4.5 K/uL (1.8-7.7); NEUTROPHILS % (AUTO) 68.1 % (40.0-70.0); PLATELET COUNT (AUTO) 304 K/uL (150-450); RED BLOOD CELL COUNT(AUTO) 4.08 MIL/uL (4.50-5.90)
[2022-12-14 15:15] LABS: ANION GAP 11 mmol/L (8-16); CALCIUM, TOTAL 9.2 mg/dL (8.8-10.5); CARBON DIOXIDE 28 mmol/L (22-29); CHLORIDE 103 mmol/L (98-107); CREATININE 1.05 mg/dL (0.60-1.30); GLOMERULAR FILTR. RATE CALC > 60 mL/min (>60); GLUCOSE,RANDOM 85 mg/dL (70-110); POTASSIUM 3.8 mmol/L (3.5-5.1); SODIUM SERUM 142 mmol/L (136-145); UREA NITROGEN, BLOOD 23 mg/dL (7-18)
[2022-12-14 15:26] LABS: B-TYPE NATRIURETIC PEPTIDE 170 pg/mL (0-100)
[2022-12-14 16:10] VITALS: BP 133/81
== END 2022-12-14 16:36 | disposition home or self-care (01) ==
LOC: EMS 12:39
DX: R06.09 Other forms of dyspnea (principal); G89.18 Other acute postprocedural pain; I25.10 Atherosclerotic heart disease of native coronary artery without angina pectoris; I11.0 Hypertensive heart disease with heart failure; J44.9 Chronic obstructive pulmonary disease, unspecified; E78.00 Pure hypercholesterolemia, unspecified; Z87.891 Personal history of nicotine dependence; Z98.890 Other specified postprocedural states
CPT/HCPCS: 71045; 80048; 82962; 83880; 84484; 85025; 93005; 99285; 36415-L1; 36415-TC

== ENCOUNTER 2023-06-17 20:29 | Inpatient (IN) | payer OTHER ==
[~2023-06-17] VITALS: Ht 165.1 cm; Wt 92.0 kg
[~2023-06-17 20:29] MED LIST changes: +ALBU18HF12 IH; -ALBU8HFA IH; +AMLO-258 PO; -AMLO10TA55 PO; +DAPA10TA PO; -DAPA5TAB PO; +FURO40 PO; -LORA-999 PO
[2023-06-17 21:18] LABS: BASOPHILS % (AUTO) 1.1 % (0.0-2.0); EOSINOPHILS % (AUTO) 3.6 % (1.0-6.0); HEMATOCRIT 44.4 % (41-53); LYMPHOCYTES # (AUTO) 1.7 K/uL (1.0-4.8); LYMPHOCYTES % (AUTO) 33.2 % (22.0-44.0); MEAN CORPUSCULAR HEMOGLOBIN 31.3 pg (26.0-34.0); MEAN CORPUSCULAR HGB CONC 33.9 G/dL (31.0-37.0); MEAN CORPUSCULAR VOLUME 93 fL (80-100); MONOCYTES # (AUTO) 0.4 K/uL (0.1-1.0); MONOCYTES % (AUTO) 7.5 % (2.0-9.0); NEUTROPHILS # (AUTO) 2.8 K/uL (1.8-7.7); NEUTROPHILS % (AUTO) 54.6 % (40.0-70.0); PLATELET COUNT (AUTO) 237 K/uL (150-450); RED CELL DISTRIBUTION WIDTH 14.3 % (11.5-14.5); WHITE BLOOD COUNT (AUTO) 5.1 K/uL (4.5-11.0)
[2023-06-17 21:27] LABS: ANION GAP 13 mmol/L (8-16); CALCIUM, TOTAL 8.8 mg/dL (8.8-10.5); CARBON DIOXIDE 23 mmol/L (22-29); CHLORIDE 102 mmol/L (98-107); CREATININE 1.11 mg/dL (0.60-1.30); GLOMERULAR FILTR. RATE CALC > 60 mL/min (>60); GLUCOSE,RANDOM 154 mg/dL (70-110); POTASSIUM 3.6 mmol/L (3.5-5.1); SODIUM SERUM 138 mmol/L (136-145); UREA NITROGEN, BLOOD 20 mg/dL (7-18)
[2023-06-17 21:33] LABS: ALANINE AMINOTRANSFERASE 16 U/L (12-78); ALBUMIN 3.4 g/dL (3.4-5.0); ALKALINE PHOSPHATASE 90 U/L (46-116); ASPARTATE AMINOTRANSFERASE 6 U/L (15-37); BILIRUBIN,TOTAL 0.2 mg/dL (0.1-1.0); TOTAL PROTEIN, SERUM 7.4 g/dL (6.4-8.2)
[2023-06-17 21:34] LABS: B-TYPE NATRIURETIC PEPTIDE 247 pg/mL (0-100)
[2023-06-17 22:02] LABS: TROPONIN I-HIGH SENSITIVITY 44 ng/L (<76)
[2023-06-17] MEDS ORDERED: ONDANSETRON HCL 4 MG/2 ML VIAL IVP PRN (22:45)
[2023-06-17] MEDS ORDERED: ACETAMINOPHEN 325 MG TABLET PO PRN (22:45)
[2023-06-17] MEDS ORDERED: NITROGLYCERIN 0.4 MG SUBLINGUAL TABLET #25 SL PRN ×2 (22:45→23:15)
[2023-06-17] MEDS ORDERED: ONDANSETRON HCL 4 MG/2 ML VIAL IVP ONE (22:45)
[2023-06-17] MEDS ORDERED: FUROSEMIDE 40 MG/4 ML VIAL IVP ONE (22:45)
[2023-06-17] MEDS ORDERED: ALBUTEROL SULFATE HFA 90 MCG/PUFF 8 GM INHALER IH PRN (22:45)
[2023-06-17] MEDS ORDERED: MORPHINE SULFATE 4 MG/ML SYRINGE IVP ONE (22:45)
[2023-06-17] MEDS ORDERED: HEPARIN SODIUM,PORCINE 5,000 UNITS/ML VIAL IVP PRN ×2 (23:00)
[2023-06-17] MEDS ORDERED: ASPIRIN 81 MG CHEWABLE TABLET PO ONE (23:00)
[2023-06-17] MEDS ORDERED: HEPARIN SODIUM,PORCINE 5,000 UNITS/ML VIAL IVP ONE (23:00)
[2023-06-17] MEDS ORDERED: TICAGRELOR 90 MG TABLET PO ONE (23:00)
[2023-06-17] MEDS ORDERED: METOPROLOL TARTRATE 25 MG TABLET PO ONE (23:00)
[2023-06-17] MEDS ORDERED: ATORVASTATIN CALCIUM 40 MG TABLET PO ONE (23:00)
[2023-06-17] MEDS ORDERED: HEPARIN SODIUM 25000 UNITS/D5W 250 ML IV PRN (23:00)
[2023-06-17] MEDS ORDERED: INSULIN LISPRO 100 UNITS/ML SQ PRN (23:15)
[2023-06-17] MEDS ORDERED: DEXTROSE 50%-WATER 25 GM/50 ML SYRINGE IVP PRN (23:15)
[2023-06-18] MEDS ORDERED: HEPARIN SODIUM,PORCINE 5,000 UNITS/ML VIAL SQ SCH
[2023-06-18 00:01] VITALS: BP 125/82; PULSE 76; RESP 20; TEMP 98.2
[2023-06-18] MEDS: FUROSEMIDE 20 MG/2 ML VIAL IVP SCH ×3 (00:37→16:53)
[2023-06-18 02:14] LABS: TROPONIN I-HIGH SENSITIVITY 44 ng/L (<76)
[2023-06-18 04:31] VITALS: BP 102/78; PULSE 69; RESP 18; TEMP 98.4
[2023-06-18] MEDS: MORPHINE SULFATE 2 MG/ML SYRINGE IVP PRN ×3 (05:09→21:06)
[2023-06-18 05:59] LABS: BASOPHILS % (AUTO) 0.7 % (0.0-2.0); HEMATOCRIT 47.2 % (41-53); HEMOGLOBIN 15.8 g/dL (13.5-17.5); LYMPHOCYTES # (AUTO) 1.7 K/uL (1.0-4.8); LYMPHOCYTES % (AUTO) 24.9 % (22.0-44.0); MEAN CORPUSCULAR HEMOGLOBIN 31.1 pg (26.0-34.0); MEAN CORPUSCULAR HGB CONC 33.5 G/dL (31.0-37.0); MEAN CORPUSCULAR VOLUME 93 fL (80-100); MONOCYTES # (AUTO) 0.6 K/uL (0.1-1.0); NEUTROPHILS # (AUTO) 4.2 K/uL (1.8-7.7); NEUTROPHILS % (AUTO) 62.4 % (40.0-70.0); PLATELET COUNT (AUTO) 236 K/uL (150-450); RED BLOOD CELL COUNT(AUTO) 5.09 MIL/uL (4.50-5.90); RED CELL DISTRIBUTION WIDTH 14.5 % (11.5-14.5); WHITE BLOOD COUNT (AUTO) 6.7 K/uL (4.5-11.0)
[2023-06-18 06:15] LABS: ANION GAP 12 mmol/L (8-16); CALCIUM, TOTAL 9.4 mg/dL (8.8-10.5); CARBON DIOXIDE 25 mmol/L (22-29); CHLORIDE 101 mmol/L (98-107); GLOMERULAR FILTR. RATE CALC > 60 mL/min (>60); GLUCOSE,RANDOM 105 mg/dL (70-110); POTASSIUM 3.6 mmol/L (3.5-5.1); SODIUM SERUM 138 mmol/L (136-145); UREA NITROGEN, BLOOD 20 mg/dL (7-18)
[2023-06-18 06:22] LABS: TROPONIN I-HIGH SENSITIVITY 44 ng/L (<76)
[2023-06-18 07:40] VITALS: BP 113/76; PULSE 75; RESP 18; TEMP 97.7
[2023-06-18] MEDS: ATORVASTATIN CALCIUM 40 MG TABLET PO SCH (08:02)
[2023-06-18] MEDS: DOCUSATE SODIUM 100 MG CAPSULE PO SCH ×2 (08:03→21:00)
[2023-06-18 08:05] LABS: GLUCOMETER DEV NAME(LOC) 5N.1C; GLUCOSE,POINT OF CARE 130 MG/DL (70-110)
[2023-06-18] MEDS: TICAGRELOR 90 MG TABLET PO SCH ×2 (08:05→21:02)
[2023-06-18] MEDS: ASPIRIN 81 MG DR TABLET PO SCH (08:05)
[2023-06-18] MEDS: METOPROLOL SUCCINATE 50 MG ER TABLET PO SCH (09:00)
[2023-06-18] MEDS ORDERED: AmLODIPine BESYLATE 10 MG TABLET PO SCH (09:00)
[2023-06-18] MEDS: SACUBITRIL/VALSARTAN 24-26 MG TABLET PO SCH ×2 (09:00→21:02)
[2023-06-18 12:34] VITALS: BP 118/69; PULSE 72; RESP 18; TEMP 98
[2023-06-18 15:26] VITALS: BP 122/74; PULSE 74; RESP 16; TEMP 98.4
[2023-06-18 20:00] VITALS: BP 102/68; PULSE 72; RESP 19; TEMP 98.2
[2023-06-18 20:16] LABS: GLUCOMETER DEV NAME(LOC) 5S.2C; GLUCOSE,POINT OF CARE 130 MG/DL (70-110)
[2023-06-18] MEDS ORDERED: TraZODone HCL 100 MG TABLET PO SCH (21:00)
[2023-06-18] MEDS ORDERED: INSULIN GLARGINE,HUM.REC.ANLOG 100 UNITS/ML SQ SCH (21:00)
[2023-06-19 00:16] VITALS: BP 102/59; PULSE 75; RESP 19; TEMP 97.9
[2023-06-19] MEDS: FUROSEMIDE 20 MG/2 ML VIAL IVP SCH (00:24)
[2023-06-19 01:00] LABS: COVID AG,FIA SOURCE NASOPHARYNGEAL
[2023-06-19 01:08] LABS: SARS-COV2 (COVID) ANTIGEN,FIA Negative (Negative)
[2023-06-19 04:22] VITALS: BP 112/77; PULSE 74; RESP 19; TEMP 97.6
[2023-06-19 08:00] VITALS: BP 118/73; PULSE 72; RESP 20; TEMP 97.9
[2023-06-19] MEDS: TICAGRELOR 90 MG TABLET PO SCH (08:31)
[2023-06-19] MEDS: SACUBITRIL/VALSARTAN 24-26 MG TABLET PO SCH (08:31)
[2023-06-19] MEDS: ATORVASTATIN CALCIUM 40 MG TABLET PO SCH (08:31)
[2023-06-19] MEDS: DOCUSATE SODIUM 100 MG CAPSULE PO SCH (08:32)
[2023-06-19] MEDS: METOPROLOL SUCCINATE 50 MG ER TABLET PO SCH (08:33)
[2023-06-19] MEDS: ASPIRIN 81 MG DR TABLET PO SCH (08:35)
[2023-06-19 08:55] VITALS: BP 73/20; PULSE 118; RESP 20; TEMP 97.9
[2023-06-19] MEDS ORDERED: FUROSEMIDE 40 MG TABLET PO SCH (09:00)
[2023-06-19] MEDS: MORPHINE SULFATE 2 MG/ML SYRINGE IVP PRN (09:04)
[2023-06-19 09:50] VITALS: BP 107/69; PULSE 75; RESP 18
[2023-06-19] MEDS ORDERED: FURO20 PO (11:50)
[2023-06-19] MEDS ORDERED: SPIR-37 PO (11:54)
[2023-06-19 12:28] VITALS: BP 106/68; PULSE 87; RESP 20; TEMP 98.2
[2023-06-19 20:31] LABS: GLUCOMETER DEV NAME(LOC) 5N.2C; GLUCOSE,POINT OF CARE 117 MG/DL (70-110)
[2023-06-19 20:31] LABS: GLUCOMETER DEV NAME(LOC) 5N.2C; GLUCOSE,POINT OF CARE 104 MG/DL (70-110)
[2023-06-20] MEDS ORDERED: SPIRONOLACTONE 25 MG TABLET PO SCH (09:00)
== END 2023-06-19 12:50 | disposition home or self-care (01) | DRG 198 ==
LOC: EMS 20:31 → 5S 23:33
PROVIDERS: ADMIT Internal Medicine; ATTEND Internal Medicine
DX: I25.110 Atherosclerotic heart disease of native coronary artery with unstable angina pectoris (principal); I50.23 Acute on chronic systolic (congestive) heart failure; I11.0 Hypertensive heart disease with heart failure; I42.8 Other cardiomyopathies; Z95.1 Presence of aortocoronary bypass graft; Z95.2 Presence of prosthetic heart valve; E11.9 Type 2 diabetes mellitus without complications; J44.9 Chronic obstructive pulmonary disease, unspecified; I34.0 Nonrheumatic mitral (valve) insufficiency; I25.5 Ischemic cardiomyopathy; Z20.822 Contact with and (suspected) exposure to COVID-19; E78.00 Pure hypercholesterolemia, unspecified; I25.2 Old myocardial infarction; Z95.0 Presence of cardiac pacemaker; Z87.891 Personal history of nicotine dependence; Z91.199 Patient's noncompliance with other medical treatment and regimen due to unspecified reason; Z79.899 Other long term (current) drug therapy; Z95.5 Presence of coronary angioplasty implant and graft; Z79.82 Long term (current) use of aspirin
CPT/HCPCS: 71045; 80048; 80053; 82962; 83735; 83880; 84484; 85025; 85730; 93005; 93306; 99291; J1644; J1815; J1940; J2270; J2405; Q9967; 36415-L1; 36415-TC

== ENCOUNTER 2025-04-17 15:45 | Emergency (ER) | payer MEDICAID, OTHER ==
[~2025-04-17] VITALS: Ht 165.1 cm; Wt 95.5 kg
[~2025-04-17 15:45] MED LIST changes: -AMLO-258 PO; +CLOP75TA32 PO; -DAPA10TA PO; +FLUT1BLS IH; +FURO20TA4 PO; -FURO40 PO; -FURO40TA5 PO; -LISI40TA9 PO; -METO-391 PO; +METO25XL PO; +SPIR-37 PO; -TICA90TA PO; -TRAZ-257 PO
[2025-04-17 16:01] LABS: PLATELET COUNT (AUTO) 190 K/uL (150-450); RED BLOOD CELL COUNT(AUTO) 4.44 MIL/uL (4.50-5.90); RED CELL DISTRIBUTION WIDTH 13.2 % (11.5-14.5); WHITE BLOOD COUNT (AUTO) 5.5 K/uL (4.5-11.0)
[2025-04-17 16:02] VITALS: TEMP 97.8
[2025-04-17 16:10] LABS: CALCIUM, TOTAL 8.8 mg/dL (8.8-10.5); CREATININE 1.21 mg/dL (0.60-1.30); GLOMERULAR FILTR. RATE CALC 60 mL/min (>60); GLUCOSE,RANDOM 121 mg/dL (70-110); SODIUM SERUM 142 mmol/L (136-145); UREA NITROGEN, BLOOD 16 mg/dL (7-18)
[2025-04-17 16:13] LABS: COVID AG,FIA SOURCE NASAL SWAB
[2025-04-17 16:18] LABS: TROPONIN I-HIGH SENSITIVITY 40 ng/L (<76)
[2025-04-17 16:33] LABS: SARS-COV2 (COVID) ANTIGEN,FIA Negative (Negative)
[2025-04-17 16:35] LABS: INFLUENZA TYPE A NEGATIVE FOR TYPE A (NEGATIVE); INFLUENZA TYPE B NEGATIVE FOR TYPE B (NEGATIVE)
[2025-04-17] MEDS ORDERED: SPIR-37 PO (17:14)
[2025-04-17] MEDS: SPIRONOLACTONE 25 MG TABLET PO ONE (17:28)
[2025-04-17 17:29] VITALS: BP 141/90; PULSE 90; RESP 20; O2SAT 96
== END 2025-04-17 17:32 | disposition home or self-care (01) ==
LOC: EMS 15:45
DX: I11.0 Hypertensive heart disease with heart failure (principal); I50.9 Heart failure, unspecified; R06.09 Other forms of dyspnea; E78.00 Pure hypercholesterolemia, unspecified; I25.10 Atherosclerotic heart disease of native coronary artery without angina pectoris; I25.2 Old myocardial infarction; J44.9 Chronic obstructive pulmonary disease, unspecified; Z79.02 Long term (current) use of antithrombotics/antiplatelets; Z79.51 Long term (current) use of inhaled steroids; Z79.82 Long term (current) use of aspirin; Z79.899 Other long term (current) drug therapy; Z95.0 Presence of cardiac pacemaker; Z95.1 Presence of aortocoronary bypass graft; Z87.891 Personal history of nicotine dependence; Z20.822 Contact with and (suspected) exposure to COVID-19
CPT/HCPCS: 71045; 80048; 83880; 84484; 85025; 87804; 93005; 99285; 36415-L1; 36415-TC

== ENCOUNTER 2025-06-13 20:26 | Emergency (ER) | payer MEDICAID ==
[~2025-06-13] VITALS: Ht 165.1 cm; Wt 95.0 kg
[2025-06-13 20:31] VITALS: BP 161/83; PULSE 95; RESP 20; TEMP 97.5; O2SAT 98
[2025-06-13 21:10] LABS: PLATELET COUNT (AUTO) 214 K/uL (150-450); RED BLOOD CELL COUNT(AUTO) 4.88 MIL/uL (4.50-5.90); RED CELL DISTRIBUTION WIDTH 13.6 % (11.5-14.5); WHITE BLOOD COUNT (AUTO) 5.0 K/uL (4.5-11.0)
[2025-06-13 21:19] LABS: CALCIUM, TOTAL 8.2 mg/dL (8.8-10.5); CREATININE 1.31 mg/dL (0.60-1.30); GLOMERULAR FILTR. RATE CALC 55 mL/min (>60); GLUCOSE,RANDOM 155 mg/dL (70-110); SODIUM SERUM 140 mmol/L (136-145); UREA NITROGEN, BLOOD 14 mg/dL (7-18)
[2025-06-13 21:23] LABS: ASPARTATE AMINOTRANSFERASE 26 U/L (15-37); CREATINE KINASE, TOTAL ONLY 82 U/L (39-308); TOTAL PROTEIN, SERUM 6.8 g/dL (6.4-8.2)
[2025-06-13 21:31] LABS: TROPONIN I-HIGH SENSITIVITY 46 ng/L (<76)
== END 2025-06-13 21:27 | disposition home or self-care (01) ==
LOC: EMS 20:26
DX: R07.89 Other chest pain (principal); Z53.21 Procedure and treatment not carried out due to patient leaving prior to being seen by health care provider
CPT/HCPCS: 71045; 80048; 80076; 82550; 83880; 84484; 85025; 85610; 85730; 93005; 99285; 36415-L1; 36415-TC

== ENCOUNTER 2025-07-31 20:23 | Emergency (ER) | payer SELFPAY ==
[~2025-07-31] VITALS: Ht 167.6 cm; Wt 100.0 kg
[2025-07-31 20:46] VITALS: TEMP 98.1
[2025-07-31 21:10] LABS: PLATELET COUNT (AUTO) 211 K/uL (150-450); RED BLOOD CELL COUNT(AUTO) 4.63 MIL/uL (4.50-5.90); RED CELL DISTRIBUTION WIDTH 13.6 % (11.5-14.5); WHITE BLOOD COUNT (AUTO) 6.1 K/uL (4.5-11.0)
[2025-07-31 21:20] LABS: CALCIUM, TOTAL 8.4 mg/dL (8.8-10.5); CREATININE 1.10 mg/dL (0.60-1.30); GLOMERULAR FILTR. RATE CALC > 60 mL/min (>60); GLUCOSE,RANDOM 112 mg/dL (70-110); SODIUM SERUM 143 mmol/L (136-145); UREA NITROGEN, BLOOD 13 mg/dL (7-18)
[2025-07-31 21:25] LABS: CREATINE KINASE, TOTAL ONLY 388 U/L (39-308)
[2025-07-31 21:30] LABS: TROPONIN I-HIGH SENSITIVITY 52 ng/L (<76)
[2025-08-01 03:48] LABS: TROPONIN I-HIGH SENSITIVITY 67 ng/L (<76)
[2025-08-01 04:06] VITALS: BP 157/88; PULSE 88; RESP 19; O2SAT 97
[2025-08-01] MEDS ORDERED: ATOR40TA71 PO (04:08)
[2025-08-01] MEDS ORDERED: SACU1TAB PO (04:08)
[2025-08-01] MEDS ORDERED: METO25XL PO (04:08)
[2025-08-01] MEDS ORDERED: NITR0.4T50 SL (04:08)
[2025-08-01] MEDS ORDERED: ASPI-1444 PO (04:08)
[2025-08-01] MEDS ORDERED: FURO20TA4 PO (04:08)
[2025-08-01] MEDS ORDERED: CLOP75TA32 PO (04:08)
== END 2025-08-01 04:20 | disposition home or self-care (01) ==
LOC: EMS 20:23
DX: R07.89 Other chest pain (principal); R06.02 Shortness of breath; E78.00 Pure hypercholesterolemia, unspecified; I11.0 Hypertensive heart disease with heart failure; I50.9 Heart failure, unspecified; I25.10 Atherosclerotic heart disease of native coronary artery without angina pectoris; J44.9 Chronic obstructive pulmonary disease, unspecified; Z87.891 Personal history of nicotine dependence; Z98.890 Other specified postprocedural states; Z79.02 Long term (current) use of antithrombotics/antiplatelets; Z79.51 Long term (current) use of inhaled steroids; Z95.0 Presence of cardiac pacemaker; Z95.1 Presence of aortocoronary bypass graft; Z79.82 Long term (current) use of aspirin; Z79.899 Other long term (current) drug therapy
CPT/HCPCS: 71046; 80048; 82550; 83690; 83880; 84484; 85025; 93005; 99285; 36415-L1; 36415-TC